=== PATIENT | male | born 1950 | race Caucasian/White ===

== ENCOUNTER 2017-04-02 14:21 | Inpatient (IN) | payer MEDICARE, BC ==
--- NOTE | 2017-04-02 14:45 | ED Physician Chart ---
ED Chief Complaint/HPI - Patient Information Date Seen:: 04/02/17 Time Seen:: 14:35 Chief Complaint:: Altered Mental Status History of Present Illness:: onset x one day of AMS, ALOC, and agitation; no report of H/As, neck pain, C/P, SOB, Abd. Pain, A/N/V/D/C, fever, chills, or urinary s/s Allergies:: Allergies Allergy/AdvReac Type Severity Reaction Status Date / Time No Known Allergies Allergy Verified 04/02/17 14:31 Vitals:: Vital Signs - 8 hr 04/02/17 14:35 Temp 98.1 F HR 84 RR 15 BP 144/84 O2 Sat % 97 Historian:: EMS, Family Member Review:: Nurse's Note Reviewed, EMS run form Reviewed ED Review of Systems - Review of Systems General/Constitutional: Fever, No chills, No weight loss, No weakness, No diaphoresis, No edema, No loss of appetite Skin: No skin lesions, No rash, No bruising Head: No headache, No light-headedness Eyes: No loss of vision, No pain, No diplopia ENT: No earache, No nasal drainage, No sore throat, No tinnitus Neck: No neck pain, No swelling, No thyromegaly, No stiffness, No mass noted Cardio Vascular: No chest pain, No palpitations, No PND, No orthopnea, No edema Pulmonary: No SOB, No cough, No sputum, No wheezing GI: No nausea, No vomiting, No diarrhea, No pain, No melena, No hematochezia, No constipation, No hematemesis G/U: No dysuria, No frequency, No hematuria Musculoskeletal: No bone or joint pain, No back pain, No muscle pain Endocrine: No polyuria, No polydipsia Psychiatric: No prior psych history, No depression, No anxiety, No suicidal ideation, No homicidal ideation, No auditory hallucination, No visual hallucination Hematopoietic: No bruising, No lymphadenopathy Allergic/Immuno: No urticaria, No angioedema Neurological: No syncope, Focal symptoms, Weakness, No paresthesia, No headache , No seizure, Dizziness, Confusion, No vertigo ED Past Medical History - Past Medical History Obtainable: Yes Past Medical History: Dyslipidemia, Dementia, Other (ALS) Family History: HTN Social History: Non Smoker, No Alcohol, No Drug Use, Surgical History: Appendectomy Psychiatricy History: Dementia Medication: Reviewed ED Physical Exam - Physical Examination General/Constitutional: Awake, Well-developed, well-nourished, Alert, No distress, GCS 15, Non-toxic appearing, Ambulatory Head: Atraumatic Eyes: Lids, conjuctiva normal, PERRL, EOMI Skin: Nl inspection, No rash, No skin lesions, No ecchymosis, Well hydrated, No lymphadenopathy ENMT: External ears, nose nl, Nasal exam nl, Lips, teeth, gums nl Neck: Nontender, Full ROM w/o pain, No JVD, No nuchal rigidity, No bruit, No mass, No stridor Respiratory: Nl effort/Exclusion, Clear to Auscultation, No Wheeze/Rhonchi/Rales Cardio Vascular: RRR, No murmur, gallop, rubs, NL S1 S2 GI: No tenderness/rebounding/guarding, No organomegaly, No hernia, Normal BS's, Nondistended, No mass/bruits, No McBurney tenderness : No CVA tenderness Extremities: No tenderness or effusion, Full ROM, normal strength in all extremities, No edema, Normal digits & nails Neuro/Psych: DTR's symmetric, Normal sensory exam, Normal motor strength, Judgement/insight normal, Mood normal, Normal gait, No focal deficits Other Neuro/Psych comments:: Disoriented and Confused Misc: Normal back, No paraspinal tenderness ED Septic Shock - . Is Septic Shock (SBP<90, OR Lactate>4 mmol\L) present?: No - <6hrs of presentation: Vital Signs: Vital Signs - 8 hr 04/02/17 14:35 Temp 98.1 F HR 84 RR 15 BP 144/84 O2 Sat % 97 ED Discharge Plan - Patient Disposition Instructions: Psychosis
[2017-04-02 15:12] LABS: % BASOPHILS 1.1 % (0.0-2.0); % EOSINOPHILS 2.2 % (0.0-5.0); % LYMPHOCYTES 33.2 % (20.0-50.0); % MONOCYTES 6.3 % (2.0-10.0); % NEUTROPHILS 57.2 % (40.0-80.0); HEMATOCRIT 40.3 % (41.0-60); HEMOGLOBIN 14.1 gm/dL (12-16); MEAN CORPUSCULAR HGB CONC 35.1 pg (28.0-36.0); MEAN PLATELET VOLUME 7.6 fl; NEUTROPHILE ABSOLUTE 6.1 Th/cmm (1.8-8.0); PLATELET COUNT 144 Th/cmm (150-400); RED BLOOD COUNT 4.28 Mil/cmm (4.30-5.70); RED CELL DISTRIBUTION WIDTH 13.1 % (11.5-20.0); WHITE BLOOD COUNT 10.7 Th/cmm (4.8-10.8)
[2017-04-02 15:49] LABS: ALB/GLOB RATIO 1.8 (1.0-1.8); ALKALINE PHOSPHATASE 63 U/L (34-104); ANION GAP 8.4 (7.0-16.0); BILIRUBIN,TOTAL 0.4 mg/dL (0.3-1.0); BUN - UREA NITROGEN 13 mg/dL (7-25); BUN/CREATININE RATIO 14.4; CALCIUM SERUM 9.3 mg/dL (8.6-10.3); CARBON DIOXIDE 28.3 mEq/L (21.0-31.0); CHLORIDE 102 mEq/L (98-107); CREATININE - SERUM 0.9 mg/dL (0.7-1.3); GLUCOSE 84 mg/dL (70-105); POTASSIUM SERUM 3.7 mEq/L (3.5-5.1); SGOT 49 U/L (13-39); SGPT/ALT 70 U/L (7-52); SODIUM SERUM 135 mEq/L (136-145)
[2017-04-02] MEDS ORDERED: Maalox 30 mL Cup PO PRN (17:22)
[2017-04-02] MEDS ORDERED: Magnesium Hydroxide (MOM) 30 mL UDC PO PRN (17:22)
[2017-04-02] MEDS ORDERED: Haloperidol Lactate 5 mg/mL 1mL Vial ONE (17:45)
[2017-04-02] MEDS ORDERED: Haloperidol Lactate 5 mg/mL 1mL Vial IM ONE (17:50)
[2017-04-03] MEDS ORDERED: Haloperidol Lactate 5 mg/mL 1mL Vial ONE (12:54)
[2017-04-03] MEDS ORDERED: Haloperidol Lactate 5 mg/mL 1mL Vial IM ONE (13:28)
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
[2017-04-04] MEDS ORDERED: IRON PO SCH (09:00)
[2017-04-04] MEDS ORDERED: VIT E PO SCH (09:00)
[2017-04-04] MEDS ORDERED: [UNRECOGNIZED DRUG - OTHER] PO SCH (09:00)
[2017-04-04] MEDS ORDERED: VIT B COMP PO SCH (09:00)
[2017-04-04] MEDS: Multivitamin Tab PO SCH (09:41)
[2017-04-04] MEDS: Atorvastatin Calcium 10 MG TAB PO SCH (09:41)
--- NOTE | 2017-04-04 12:46 | Internal Medicine Prog Note ---
Internal Medicine Subjective - Subjective Service Date: 04/04/17 ([id number] hnp dictated) Patient seen and examined:: with staff Internal Medicine Objective - Results Result Diagrams: 04/02/17 15:05 04/02/17 15:05 Recent Labs: Laboratory Last Values WBC 10.7 Th/cmm (4.8-10.8) 04/02/17 15:05 RBC 4.28 Mil/cmm (4.30-5.70) L 04/02/17 15:05 Hgb 14.1 gm/dL (12-16) 04/02/17 15:05 Hct 40.3 % (41.0-60) L 04/02/17 15:05 MCV 94.0 fl (80-99) 04/02/17 15:05 MCH 33.0 pg (26.0-30.0) H 04/02/17 15:05 MCHC Differential 35.1 pg (28.0-36.0) 04/02/17 15:05 RDW 13.1 % (11.5-20.0) 04/02/17 15:05 Plt Count 144 Th/cmm (150-400) L 04/02/17 15:05 MPV 7.6 fl 04/02/17 15:05 Neutrophils % 57.2 % (40.0-80.0) 04/02/17 15:05 Lymphocytes % 33.2 % (20.0-50.0) 04/02/17 15:05 Monocytes % 6.3 % (2.0-10.0) 04/02/17 15:05 Eosinophils % 2.2 % (0.0-5.0) 04/02/17 15:05 Basophils % 1.1 % (0.0-2.0) 04/02/17 15:05 Sodium 135 mEq/L (136-145) L 04/02/17 15:05 Potassium 3.7 mEq/L (3.5-5.1) 04/02/17 15:05 Chloride 102 mEq/L (98-107) 04/02/17 15:05 Carbon Dioxide 28.3 mEq/L (21.0-31.0) 04/02/17 15:05 Anion Gap 8.4 (7.0-16.0) 04/02/17 15:05 BUN 13 mg/dL (7-25) 04/02/17 15:05 Creatinine 0.9 mg/dL (0.7-1.3) 04/02/17 15:05 Est GFR ( Amer) > 60.0 ml/min (>90) 04/02/17 15:05 Est GFR (Non-Af Amer) > 60.0 ml/min 04/02/17 15:05 BUN/Creatinine Ratio 14.4 04/02/17 15:05 Glucose 84 mg/dL (70-105) 04/02/17 15:05 Calcium 9.3 mg/dL (8.6-10.3) 04/02/17 15:05 Total Bilirubin 0.4 mg/dL (0.3-1.0) 04/02/17 15:05 AST 49 U/L (13-39) H 04/02/17 15:05 ALT 70 U/L (7-52) H 04/02/17 15:05 Alkaline Phosphatase 63 U/L (34-104) 04/02/17 15:05 Total Protein 7.0 gm/dL (6.0-8.3) 04/02/17 15:05 Albumin 4.5 gm/dL (4.2-5.5) 04/02/17 15:05 Globulin 2.5 gm/dL 04/02/17 15:05 Albumin/Globulin Ratio 1.8 (1.0-1.8) 04/02/17 15:05 - Physical Exam Vitals and I&O: Vital Signs Temp 97.5 F 04/04/17 06:45 Pulse 90 04/04/17 06:45 Resp 20 04/04/17 06:45 BP 153/77 04/04/17 06:45 Pulse Ox 95 04/04/17 06:45 Intake & Output 04/03/17 04/04/17 04/04/17 18:59 06:59 18:59 Intake Total 960 120 Balance 960 120 Intake: Oral 960 120 Other: # Voids 3 3 # Bowel Movements 1 1 Active Medications: Current Medications Acetaminophen (Tylenol) 650 mg PO Q4H PRN PRN Reason: Mild Pain/Headache/T above 101 Stop: 06/01/17 17:21 Last Admin: 04/03/17 09:21 Dose: 650 mg Al Hydrox/Mg Hydrox/Simethicone (Maalox) 30 ml PO Q6H PRN PRN Reason: Dyspepsia Stop: 06/01/17 17:21 Atorvastatin Calcium (Lipitor) 10 mg PO DAILY MIKE PRN Reason: Protocol Stop: 06/03/17 08:59 Last Admin: 04/04/17 09:41 Dose: 10 mg Chlordiazepoxide (Librium) 50 mg PO Q2HR PRN; Protocol PRN Reason: Alcohol Withdrawal Stop: 06/03/17 12:10 Last Admin: 04/04/17 12:30 Dose: 50 mg Lorazepam (Ativan) 0.5 mg PO Q4HR PRN; Protocol PRN Reason: Agitation Stop: 06/01/17 17:21 Last Admin: 04/04/17 10:38 Dose: 0.5 mg Magnesium Hydroxide (Milk Of Magnesia) 30 ml PO DAILY PRN PRN Reason: Constipation Stop: 06/01/17 17:21 Multivitamins/Vitamin C (Theragran) 1 tab PO DAILY MIKE Stop: 06/03/17 08:59 Last Admin: 04/04/17 09:41 Dose: 1 tab Thiamine HCl (Vitamin B1) 100 mg PO DAILY MIKE Stop: 06/03/17 08:59 Last Admin: 04/04/17 09:41 Dose: 100 mg Zolpidem Tartrate (Ambien) 5 mg PO HS PRN PRN Reason: Insomnia Stop: 06/01/17 17:21 Internal Medicine Assmt/Plan - Assessment Assessment: AGITATION PSYCHOSIS ALTERED MENTAL STATUS DEMENTIA DYSLIPIDEMIA
--- NOTE | 2017-04-04 13:50 | History & Physical ---
ADMIT DATE: 04/04/2017 CHIEF COMPLAINT: Altered mental status. HISTORY OF PRESENT ILLNESS: This is a 66-year-old male, who is admitted to the Geropsych Unit for altered mental status and agitation. Patient is now admitted to the Geropsych Unit. PAST MEDICAL HISTORY: Dyslipidemia and dementia. SOCIAL HISTORY: No history of smoking, alcohol, any illicit drug usage. SURGICAL HISTORY: Appendectomy. MEDICATIONS: Please see medication sheet. REVIEW OF SYSTEMS: GENERAL: Denies any fevers and chills. CARDIOVASCULAR: Denies chest pain. RESPIRATORY: Denies shortness of breath. GASTROINTESTINAL: Denies nausea, vomiting or abdominal pain. GENITOURINARY: Dysuria. All other systems are reviewed by me and are negative. PHYSICAL EXAMINATION: GENERAL: Patient's well-developed, well-nourished, no acute distress. VITAL SIGNS: Temperature 97.5, heart rate 90, blood pressure 153/77, respirations 20, O2 95%. HEENT: Head is atraumatic. NECK: Supple ____ mass. LUNGS: Clear bilaterally. ABDOMEN: Soft, nontender. LABORATORY DATA: WBC 10.7, H and H 14.1 and 40.3, platelet of 144. Sodium 135, potassium 3.7, chloride 102, BUN 13, creatinine 0.9. ASSESSMENT: Altered mental status, psychosis, dyslipidemia and dementia. PLAN: Patient to be admitted to the Geropsych Unit. Patient to continue same medications the patient was taking at home. We will continue to follow this patient. JOB# [id number]
--- NOTE | 2017-04-04 21:36 | Progress Notes ---
DATE: 04/04/2017 SUBJECTIVE: Chart reviewed and the patient interviewed. Also discussed the patient's condition with the staff and reviewed records and labs. The patient continues to be severely agitated and he is still restless. The patient also is confused and still unable to answer questions coherently. Also, is still easily agitated. Otherwise, is slightly easier to redirect him. The patient also is trying to get out of bed, in confused state and seems to be slightly disoriented. The patient also still has minimum interaction with others. Yesterday, and during the day, the patient was extremely agitated and irritable and the patient had to be given emergency Haldol, Ativan and Benadryl injection to calm him down. ASSESSMENT: The patient is still confused and still needs close monitoring. TREATMENT PLAN: We will continue monitoring his behavior and his condition closely. Also, we will give thiamine to help with any possible withdrawal of alcohol as well as continue benzodiazepines on a p.r.n. basis and we will continue to follow up. JOB# [id number]
[2017-04-05] MEDS: Multivitamin Tab PO SCH (10:00)
[2017-04-05] MEDS: Atorvastatin Calcium 10 MG TAB PO SCH (10:00)
--- NOTE | 2017-04-05 14:59 | Internal Medicine Prog Note ---
Internal Medicine Subjective - Subjective Patient seen and examined:: with staff, chart reviewed Patient is:: awake, non-verbal, non-interactive, damien chair Per staff patient has:: no adverse event, no episodes of fall, poor appetite, noncompliant, tolerating meds Internal Medicine Objective - Results Result Diagrams: 04/02/17 15:05 04/02/17 15:05 Recent Labs: Laboratory Last Values WBC 10.7 Th/cmm (4.8-10.8) 04/02/17 15:05 RBC 4.28 Mil/cmm (4.30-5.70) L 04/02/17 15:05 Hgb 14.1 gm/dL (12-16) 04/02/17 15:05 Hct 40.3 % (41.0-60) L 04/02/17 15:05 MCV 94.0 fl (80-99) 04/02/17 15:05 MCH 33.0 pg (26.0-30.0) H 04/02/17 15:05 MCHC Differential 35.1 pg (28.0-36.0) 04/02/17 15:05 RDW 13.1 % (11.5-20.0) 04/02/17 15:05 Plt Count 144 Th/cmm (150-400) L 04/02/17 15:05 MPV 7.6 fl 04/02/17 15:05 Neutrophils % 57.2 % (40.0-80.0) 04/02/17 15:05 Lymphocytes % 33.2 % (20.0-50.0) 04/02/17 15:05 Monocytes % 6.3 % (2.0-10.0) 04/02/17 15:05 Eosinophils % 2.2 % (0.0-5.0) 04/02/17 15:05 Basophils % 1.1 % (0.0-2.0) 04/02/17 15:05 Sodium 135 mEq/L (136-145) L 04/02/17 15:05 Potassium 3.7 mEq/L (3.5-5.1) 04/02/17 15:05 Chloride 102 mEq/L (98-107) 04/02/17 15:05 Carbon Dioxide 28.3 mEq/L (21.0-31.0) 04/02/17 15:05 Anion Gap 8.4 (7.0-16.0) 04/02/17 15:05 BUN 13 mg/dL (7-25) 04/02/17 15:05 Creatinine 0.9 mg/dL (0.7-1.3) 04/02/17 15:05 Est GFR ( Amer) > 60.0 ml/min (>90) 04/02/17 15:05 Est GFR (Non-Af Amer) > 60.0 ml/min 04/02/17 15:05 BUN/Creatinine Ratio 14.4 04/02/17 15:05 Glucose 84 mg/dL (70-105) 04/02/17 15:05 Calcium 9.3 mg/dL (8.6-10.3) 04/02/17 15:05 Total Bilirubin 0.4 mg/dL (0.3-1.0) 04/02/17 15:05 AST 49 U/L (13-39) H 04/02/17 15:05 ALT 70 U/L (7-52) H 04/02/17 15:05 Alkaline Phosphatase 63 U/L (34-104) 04/02/17 15:05 Total Protein 7.0 gm/dL (6.0-8.3) 04/02/17 15:05 Albumin 4.5 gm/dL (4.2-5.5) 04/02/17 15:05 Globulin 2.5 gm/dL 04/02/17 15:05 Albumin/Globulin Ratio 1.8 (1.0-1.8) 04/02/17 15:05 - Physical Exam Vitals and I&O: Vital Signs Temp 98.4 F 04/05/17 06:48 Pulse 79 04/05/17 06:48 Resp 20 04/05/17 06:48 BP 149/82 04/05/17 06:48 Pulse Ox 98 04/05/17 06:48 Intake & Output 04/04/17 04/05/17 04/05/17 18:59 06:59 18:59 Intake Total 960 240 Balance 960 240 Intake: Oral 960 240 Other: # Voids 3 1 # Bowel Movements 1 Active Medications: Current Medications Acetaminophen (Tylenol) 650 mg PO Q4H PRN PRN Reason: Mild Pain/Headache/T above 101 Stop: 06/01/17 17:21 Last Admin: 04/03/17 09:21 Dose: 650 mg Al Hydrox/Mg Hydrox/Simethicone (Maalox) 30 ml PO Q6H PRN PRN Reason: Dyspepsia Stop: 06/01/17 17:21 Atorvastatin Calcium (Lipitor) 10 mg PO DAILY MIKE PRN Reason: Protocol Stop: 06/03/17 08:59 Last Admin: 04/05/17 10:00 Dose: Not Given Chlordiazepoxide (Librium) 50 mg PO Q2HR PRN; Protocol PRN Reason: Alcohol Withdrawal Stop: 06/03/17 12:10 Last Admin: 04/05/17 13:46 Dose: 50 mg Lorazepam (Ativan) 0.5 mg PO Q4HR PRN; Protocol PRN Reason: Agitation Stop: 06/01/17 17:21 Last Admin: 04/04/17 16:21 Dose: 0.5 mg Magnesium Hydroxide (Milk Of Magnesia) 30 ml PO DAILY PRN PRN Reason: Constipation Stop: 06/01/17 17:21 Multivitamins/Vitamin C (Theragran) 1 tab PO DAILY MIKE Stop: 06/03/17 08:59 Last Admin: 04/05/17 10:00 Dose: Not Given Quetiapine Fumarate (Seroquel) 25 mg PO BID MIKE PRN Reason: Protocol Stop: 06/04/17 16:59 Thiamine HCl (Vitamin B1) 100 mg PO DAILY [facility] Stop: 06/03/17 08:59 Last Admin: 04/05/17 10:00 Dose: Not Given Zolpidem Tartrate (Ambien) 5 mg PO HS PRN PRN Reason: Insomnia Stop: 06/01/17 17:21 General: lethargic, demented HEENT: NC/AT, PERRLA, thinning hair, poor dentition Neck: Supple, No thyromegaly Lungs: CTAB Cardiovascular: RRR, Normal S1, Normal S2, without murmur Abdomen: soft, non-tender, globular, positive bowel sound Extremities: excoriation Internal Medicine Assmt/Plan - Assessment Assessment: AGITATION PSYCHOSIS ALTERED MENTAL STATUS DEMENTIA DYSLIPIDEMIA - Plan Plan: cont w nutritional support will rview labs symptomatic care and tx dw rn
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
--- NOTE | 2017-04-06 10:56 | Internal Medicine Prog Note ---
Internal Medicine Subjective - Subjective Patient seen and examined:: with staff, chart reviewed Patient is:: awake, non-verbal, non-interactive, damien chair Per staff patient has:: no adverse event, no episodes of fall, poor appetite, noncompliant, tolerating meds Internal Medicine Objective - Results Result Diagrams: 04/02/17 15:05 04/02/17 15:05 Recent Labs: Laboratory Last Values WBC 10.7 Th/cmm (4.8-10.8) 04/02/17 15:05 RBC 4.28 Mil/cmm (4.30-5.70) L 04/02/17 15:05 Hgb 14.1 gm/dL (12-16) 04/02/17 15:05 Hct 40.3 % (41.0-60) L 04/02/17 15:05 MCV 94.0 fl (80-99) 04/02/17 15:05 MCH 33.0 pg (26.0-30.0) H 04/02/17 15:05 MCHC Differential 35.1 pg (28.0-36.0) 04/02/17 15:05 RDW 13.1 % (11.5-20.0) 04/02/17 15:05 Plt Count 144 Th/cmm (150-400) L 04/02/17 15:05 MPV 7.6 fl 04/02/17 15:05 Neutrophils % 57.2 % (40.0-80.0) 04/02/17 15:05 Lymphocytes % 33.2 % (20.0-50.0) 04/02/17 15:05 Monocytes % 6.3 % (2.0-10.0) 04/02/17 15:05 Eosinophils % 2.2 % (0.0-5.0) 04/02/17 15:05 Basophils % 1.1 % (0.0-2.0) 04/02/17 15:05 Sodium 135 mEq/L (136-145) L 04/02/17 15:05 Potassium 3.7 mEq/L (3.5-5.1) 04/02/17 15:05 Chloride 102 mEq/L (98-107) 04/02/17 15:05 Carbon Dioxide 28.3 mEq/L (21.0-31.0) 04/02/17 15:05 Anion Gap 8.4 (7.0-16.0) 04/02/17 15:05 BUN 13 mg/dL (7-25) 04/02/17 15:05 Creatinine 0.9 mg/dL (0.7-1.3) 04/02/17 15:05 Est GFR ( Amer) > 60.0 ml/min (>90) 04/02/17 15:05 Est GFR (Non-Af Amer) > 60.0 ml/min 04/02/17 15:05 BUN/Creatinine Ratio 14.4 04/02/17 15:05 Glucose 84 mg/dL (70-105) 04/02/17 15:05 Calcium 9.3 mg/dL (8.6-10.3) 04/02/17 15:05 Total Bilirubin 0.4 mg/dL (0.3-1.0) 04/02/17 15:05 AST 49 U/L (13-39) H 04/02/17 15:05 ALT 70 U/L (7-52) H 04/02/17 15:05 Alkaline Phosphatase 63 U/L (34-104) 04/02/17 15:05 Total Protein 7.0 gm/dL (6.0-8.3) 04/02/17 15:05 Albumin 4.5 gm/dL (4.2-5.5) 04/02/17 15:05 Globulin 2.5 gm/dL 04/02/17 15:05 Albumin/Globulin Ratio 1.8 (1.0-1.8) 04/02/17 15:05 - Physical Exam Vitals and I&O: Vital Signs Temp 99.0 F 04/06/17 10:07 Pulse 93 04/06/17 10:07 Resp 20 04/06/17 10:07 BP 158/78 04/06/17 10:07 Pulse Ox 93 04/06/17 10:07 Intake & Output 04/05/17 04/06/17 04/06/17 18:59 06:59 18:59 Intake Total 1000 120 Balance 1000 120 Intake: Oral 1000 120 Other: # Voids 3 3 # Bowel Movements 1 Active Medications: Current Medications Acetaminophen (Tylenol) 650 mg PO Q4H PRN PRN Reason: Mild Pain/Headache/T above 101 Stop: 06/01/17 17:21 Last Admin: 04/03/17 09:21 Dose: 650 mg Al Hydrox/Mg Hydrox/Simethicone (Maalox) 30 ml PO Q6H PRN PRN Reason: Dyspepsia Stop: 06/01/17 17:21 Atorvastatin Calcium (Lipitor) 10 mg PO DAILY MIKE PRN Reason: Protocol Stop: 06/03/17 08:59 Last Admin: 04/05/17 10:00 Dose: Not Given Chlordiazepoxide (Librium) 50 mg PO Q2HR PRN; Protocol PRN Reason: Alcohol Withdrawal Stop: 06/03/17 12:10 Last Admin: 04/05/17 13:46 Dose: 50 mg Lorazepam (Ativan) 0.5 mg PO Q4HR PRN; Protocol PRN Reason: Agitation Stop: 06/01/17 17:21 Last Admin: 04/04/17 16:21 Dose: 0.5 mg Magnesium Hydroxide (Milk Of Magnesia) 30 ml PO DAILY PRN PRN Reason: Constipation Stop: 06/01/17 17:21 Multivitamins/Vitamin C (Theragran) 1 tab PO DAILY MIKE Stop: 06/03/17 08:59 Last Admin: 04/05/17 10:00 Dose: Not Given Quetiapine Fumarate (Seroquel) 25 mg PO BID MIKE PRN Reason: Protocol Stop: 06/04/17 16:59 Last Admin: 04/05/17 18:00 Dose: 25 mg Thiamine HCl (Vitamin B1) 100 mg PO DAILY MIKE Stop: 06/03/17 08:59 Last Admin: 04/05/17 10:00 Dose: Not Given Zolpidem Tartrate (Ambien) 5 mg PO HS PRN PRN Reason: Insomnia Stop: 06/01/17 17:21 General: lethargic, demented HEENT: NC/AT, PERRLA, thinning hair, poor dentition Neck: Supple, No thyromegaly Lungs: CTAB Cardiovascular: RRR, Normal S1, Normal S2, without murmur Abdomen: soft, non-tender, globular, positive bowel sound Extremities: excoriation Internal Medicine Assmt/Plan - Assessment Assessment: AGITATION PSYCHOSIS ALTERED MENTAL STATUS DEMENTIA DYSLIPIDEMIA - Plan Plan: cont w nutritional support will rview labs symptomatic care and tx luz rn
[2017-04-06] MEDS: Atorvastatin Calcium 10 MG TAB PO SCH (12:30)
[2017-04-06] MEDS: Multivitamin Tab PO SCH (12:30)
--- NOTE | 2017-04-07 02:02 | Progress Notes ---
DATE: 04/06/2017 Case was discussed with staff of the patient, reviewed records. The patient, according to staff, has been sometimes refusing to take his medication. Continues to have poor insight. Continues to be unpredictable, impulsive, needing redirection. He is on detox from the alcohol. He was unwilling to participate in meaningful conversation or give any information regarding events that led to his admission. We will continue to work with the patient in group therapy and milieu therapy, adjust the medication as needed. JOB# [id number]
[2017-04-07] MEDS: Multivitamin Tab PO SCH (09:12)
[2017-04-07] MEDS: Atorvastatin Calcium 10 MG TAB PO SCH (09:13)
--- NOTE | 2017-04-07 12:24 | Internal Medicine Prog Note ---
Internal Medicine Subjective - Subjective Service Date: 04/07/17 Patient is:: awake, non-verbal, non-interactive, damien chair Per staff patient has:: no adverse event, no episodes of fall, poor appetite, noncompliant, tolerating meds Internal Medicine Objective - Results Result Diagrams: 04/02/17 15:05 04/02/17 15:05 Recent Labs: Laboratory Last Values WBC 10.7 Th/cmm (4.8-10.8) 04/02/17 15:05 RBC 4.28 Mil/cmm (4.30-5.70) L 04/02/17 15:05 Hgb 14.1 gm/dL (12-16) 04/02/17 15:05 Hct 40.3 % (41.0-60) L 04/02/17 15:05 MCV 94.0 fl (80-99) 04/02/17 15:05 MCH 33.0 pg (26.0-30.0) H 04/02/17 15:05 MCHC Differential 35.1 pg (28.0-36.0) 04/02/17 15:05 RDW 13.1 % (11.5-20.0) 04/02/17 15:05 Plt Count 144 Th/cmm (150-400) L 04/02/17 15:05 MPV 7.6 fl 04/02/17 15:05 Neutrophils % 57.2 % (40.0-80.0) 04/02/17 15:05 Lymphocytes % 33.2 % (20.0-50.0) 04/02/17 15:05 Monocytes % 6.3 % (2.0-10.0) 04/02/17 15:05 Eosinophils % 2.2 % (0.0-5.0) 04/02/17 15:05 Basophils % 1.1 % (0.0-2.0) 04/02/17 15:05 Sodium 135 mEq/L (136-145) L 04/02/17 15:05 Potassium 3.7 mEq/L (3.5-5.1) 04/02/17 15:05 Chloride 102 mEq/L (98-107) 04/02/17 15:05 Carbon Dioxide 28.3 mEq/L (21.0-31.0) 04/02/17 15:05 Anion Gap 8.4 (7.0-16.0) 04/02/17 15:05 BUN 13 mg/dL (7-25) 04/02/17 15:05 Creatinine 0.9 mg/dL (0.7-1.3) 04/02/17 15:05 Est GFR ( Amer) > 60.0 ml/min (>90) 04/02/17 15:05 Est GFR (Non-Af Amer) > 60.0 ml/min 04/02/17 15:05 BUN/Creatinine Ratio 14.4 04/02/17 15:05 Glucose 84 mg/dL (70-105) 04/02/17 15:05 Calcium 9.3 mg/dL (8.6-10.3) 04/02/17 15:05 Total Bilirubin 0.4 mg/dL (0.3-1.0) 04/02/17 15:05 AST 49 U/L (13-39) H 04/02/17 15:05 ALT 70 U/L (7-52) H 04/02/17 15:05 Alkaline Phosphatase 63 U/L (34-104) 04/02/17 15:05 Total Protein 7.0 gm/dL (6.0-8.3) 04/02/17 15:05 Albumin 4.5 gm/dL (4.2-5.5) 04/02/17 15:05 Globulin 2.5 gm/dL 04/02/17 15:05 Albumin/Globulin Ratio 1.8 (1.0-1.8) 04/02/17 15:05 - Physical Exam Vitals and I&O: Vital Signs Temp 98.3 F 04/07/17 05:47 Pulse 83 04/07/17 05:47 Resp 20 04/07/17 08:00 BP 165/82 04/07/17 05:47 Pulse Ox 92 04/07/17 05:47 Intake & Output 04/06/17 04/07/17 04/07/17 18:59 06:59 18:59 Intake Total 1380 Balance 1380 Intake: Oral 1380 Other: # Voids 2 # Bowel Movements 0 Active Medications: Current Medications Acetaminophen (Tylenol) 650 mg PO Q4H PRN PRN Reason: Mild Pain/Headache/T above 101 Stop: 06/01/17 17:21 Last Admin: 04/03/17 09:21 Dose: 650 mg Al Hydrox/Mg Hydrox/Simethicone (Maalox) 30 ml PO Q6H PRN PRN Reason: Dyspepsia Stop: 06/01/17 17:21 Atorvastatin Calcium (Lipitor) 10 mg PO DAILY MIKE PRN Reason: Protocol Stop: 06/03/17 08:59 Last Admin: 04/07/17 09:13 Dose: 10 mg Lorazepam (Ativan) 0.5 mg PO Q4HR PRN; Protocol PRN Reason: Agitation Stop: 06/01/17 17:21 Last Admin: 04/04/17 16:21 Dose: 0.5 mg Lorazepam (Ativan) 1 mg PO TID MIKE PRN Reason: Protocol Stop: 06/06/17 13:59 Magnesium Chloride (Slow-Mag) 1 ect PO DAILY MIKE Stop: 06/07/17 08:59 Magnesium Hydroxide (Milk Of Magnesia) 30 ml PO DAILY PRN PRN Reason: Constipation Stop: 06/01/17 17:21 Multivitamins/Vitamin C (Theragran) 1 tab PO DAILY MIKE Stop: 06/03/17 08:59 Last Admin: 04/07/17 09:12 Dose: 1 tab Quetiapine Fumarate (Seroquel) 25 mg PO BID MIKE PRN Reason: Protocol Stop: 06/04/17 16:59 Last Admin: 04/07/17 09:14 Dose: 25 mg Thiamine HCl (Vitamin B1) 100 mg PO DAILY MIKE Stop: 06/03/17 08:59 Last Admin: 04/07/17 09:15 Dose: 100 mg Zolpidem Tartrate (Ambien) 5 mg PO HS PRN PRN Reason: Insomnia Stop: 06/01/17 17:21 General: lethargic, demented HEENT: NC/AT, PERRLA, thinning hair, poor dentition Neck: Supple, No thyromegaly Lungs: CTAB Cardiovascular: RRR, Normal S1, Normal S2, without murmur Abdomen: soft, non-tender, globular, positive bowel sound Extremities: excoriation Internal Medicine Assmt/Plan - Assessment Assessment: AGITATION PSYCHOSIS ALTERED MENTAL STATUS DEMENTIA DYSLIPIDEMIA ALS - Plan Plan: continue with nutritional support symptomatic care and tx continue present management
--- NOTE | 2017-04-07 22:28 | Progress Notes ---
DATE: 04/07/2017 SUBJECTIVE: Chart reviewed and the patient interviewed. Also discussed the patient's condition with the staff and reviewed records and labs. The patient remains anxious and he is still shaky and confused. When I tried to talk to the patient, he was very confused and unable to carry on a coherent conversation, and he did not know where he is at or what is his date or the day or time. He was calm, but he seems to be going through withdrawal. ASSESSMENT: The patient is still confused and going through detox. TREATMENT PLAN: We will add magnesium sulfate and thiamine and also we will increase Ativan, and we will continue monitoring his behavior closely. JOB# [id number]
[2017-04-08] MEDS: Atorvastatin Calcium 10 MG TAB PO SCH (09:46)
[2017-04-08] MEDS: Multivitamin Tab PO SCH (09:46)
[2017-04-08] MEDS: Magnesium Chloride EC 64mg Tab PO SCH (09:46)
--- NOTE | 2017-04-08 14:14 | Internal Medicine Prog Note ---
Internal Medicine Subjective - Subjective Service Date: 04/08/17 Patient is:: awake, non-verbal, non-interactive, damien chair Per staff patient has:: no adverse event, no episodes of fall, poor appetite, noncompliant, tolerating meds Internal Medicine Objective - Results Result Diagrams: 04/02/17 15:05 04/02/17 15:05 Recent Labs: Laboratory Last Values WBC 10.7 Th/cmm (4.8-10.8) 04/02/17 15:05 RBC 4.28 Mil/cmm (4.30-5.70) L 04/02/17 15:05 Hgb 14.1 gm/dL (12-16) 04/02/17 15:05 Hct 40.3 % (41.0-60) L 04/02/17 15:05 MCV 94.0 fl (80-99) 04/02/17 15:05 MCH 33.0 pg (26.0-30.0) H 04/02/17 15:05 MCHC Differential 35.1 pg (28.0-36.0) 04/02/17 15:05 RDW 13.1 % (11.5-20.0) 04/02/17 15:05 Plt Count 144 Th/cmm (150-400) L 04/02/17 15:05 MPV 7.6 fl 04/02/17 15:05 Neutrophils % 57.2 % (40.0-80.0) 04/02/17 15:05 Lymphocytes % 33.2 % (20.0-50.0) 04/02/17 15:05 Monocytes % 6.3 % (2.0-10.0) 04/02/17 15:05 Eosinophils % 2.2 % (0.0-5.0) 04/02/17 15:05 Basophils % 1.1 % (0.0-2.0) 04/02/17 15:05 Sodium 135 mEq/L (136-145) L 04/02/17 15:05 Potassium 3.7 mEq/L (3.5-5.1) 04/02/17 15:05 Chloride 102 mEq/L (98-107) 04/02/17 15:05 Carbon Dioxide 28.3 mEq/L (21.0-31.0) 04/02/17 15:05 Anion Gap 8.4 (7.0-16.0) 04/02/17 15:05 BUN 13 mg/dL (7-25) 04/02/17 15:05 Creatinine 0.9 mg/dL (0.7-1.3) 04/02/17 15:05 Est GFR ( Amer) > 60.0 ml/min (>90) 04/02/17 15:05 Est GFR (Non-Af Amer) > 60.0 ml/min 04/02/17 15:05 BUN/Creatinine Ratio 14.4 04/02/17 15:05 Glucose 84 mg/dL (70-105) 04/02/17 15:05 Calcium 9.3 mg/dL (8.6-10.3) 04/02/17 15:05 Total Bilirubin 0.4 mg/dL (0.3-1.0) 04/02/17 15:05 AST 49 U/L (13-39) H 04/02/17 15:05 ALT 70 U/L (7-52) H 04/02/17 15:05 Alkaline Phosphatase 63 U/L (34-104) 04/02/17 15:05 Total Protein 7.0 gm/dL (6.0-8.3) 04/02/17 15:05 Albumin 4.5 gm/dL (4.2-5.5) 04/02/17 15:05 Globulin 2.5 gm/dL 04/02/17 15:05 Albumin/Globulin Ratio 1.8 (1.0-1.8) 04/02/17 15:05 - Physical Exam Vitals and I&O: Vital Signs Temp 98.0 F 04/08/17 06:22 Pulse 93 04/08/17 06:22 Resp 20 04/08/17 06:22 BP 149/69 04/08/17 06:22 Pulse Ox 92 04/08/17 06:22 Intake & Output 04/07/17 04/08/17 04/08/17 18:59 06:59 18:59 Intake Total 900 180 Balance 900 180 Intake: Oral 900 180 Other: # Voids 4 2 # Bowel Movements 1 0 Active Medications: Current Medications Acetaminophen (Tylenol) 650 mg PO Q4H PRN PRN Reason: Mild Pain/Headache/T above 101 Stop: 06/01/17 17:21 Last Admin: 04/03/17 09:21 Dose: 650 mg Al Hydrox/Mg Hydrox/Simethicone (Maalox) 30 ml PO Q6H PRN PRN Reason: Dyspepsia Stop: 06/01/17 17:21 Atorvastatin Calcium (Lipitor) 10 mg PO DAILY MIKE PRN Reason: Protocol Stop: 06/03/17 08:59 Last Admin: 04/08/17 09:46 Dose: 10 mg Lorazepam (Ativan) 0.5 mg PO Q4HR PRN; Protocol PRN Reason: Agitation Stop: 06/01/17 17:21 Last Admin: 04/04/17 16:21 Dose: 0.5 mg Lorazepam (Ativan) 1 mg PO TID MIKE PRN Reason: Protocol Stop: 06/06/17 13:59 Last Admin: 04/08/17 09:46 Dose: 1 mg Magnesium Chloride (Slow-Mag) 1 ect PO DAILY MIKE Stop: 06/07/17 08:59 Last Admin: 04/08/17 09:46 Dose: 1 ect Magnesium Hydroxide (Milk Of Magnesia) 30 ml PO DAILY PRN PRN Reason: Constipation Stop: 06/01/17 17:21 Multivitamins/Vitamin C (Theragran) 1 tab PO DAILY MIKE Stop: 06/03/17 08:59 Last Admin: 04/08/17 09:46 Dose: 1 tab Quetiapine Fumarate (Seroquel) 25 mg PO BID MIKE PRN Reason: Protocol Stop: 06/04/17 16:59 Last Admin: 04/08/17 09:47 Dose: 25 mg Thiamine HCl (Vitamin B1) 100 mg PO DAILY MIKE Stop: 06/03/17 08:59 Last Admin: 04/08/17 09:47 Dose: 100 mg Zolpidem Tartrate (Ambien) 5 mg PO HS PRN PRN Reason: Insomnia Stop: 06/01/17 17:21 General: lethargic, demented HEENT: NC/AT, PERRLA, thinning hair, poor dentition Neck: Supple, No thyromegaly Lungs: CTAB Cardiovascular: RRR, Normal S1, Normal S2, without murmur Abdomen: soft, non-tender, globular, positive bowel sound Extremities: excoriation Internal Medicine Assmt/Plan - Assessment Assessment: AGITATION PSYCHOSIS ALTERED MENTAL STATUS DEMENTIA DYSLIPIDEMIA ALS - Plan Plan: continue with nutritional support symptomatic care and tx continue present management
--- NOTE | 2017-04-08 20:23 | Progress Notes ---
DATE: 04/08/2017 SUBJECTIVE: Chart reviewed and the patient interviewed. Also, discussed the patient's condition with the staff and reviewed records and labs. The patient is angry and is in irritable mood. The patient also is still suspicious and is still paranoid. He also is still having difficulty with his mood. The patient also needs lots of redirections because of confusion. Also, personal hygiene is still poor. ASSESSMENT: The patient is still psychotic and agitated. TREATMENT PLAN: Continue to monitor his behavior and condition and we will continue to follow up. JOB# [id number]
--- NOTE | 2017-04-09 06:58 | Progress Notes ---
DATE: 04/09/2017 SUBJECTIVE: Chart reviewed and the patient interviewed. Also discussed the patient's condition with the staff and reviewed records and labs. The patient is still severely anxious and he is still in a depressed mood. The patient also is interacting minimally with peers and with others. The patient also still seems to have episodes of being shaky. Also seems to be at times forgetful. Otherwise, the patient is compliant with taking his medications with no side effects of medications. He denies any craving to drink. ASSESSMENT: The patient is still psychotic and also is still high risk relapse. TREATMENT PLAN: Continue to monitor his behavior and his condition closely. Also, we will increase Seroquel to 37.5 mg twice a day. Also, working on his possible depression and we will continue to follow up closely. JOB# [id number]
[2017-04-09] MEDS: Atorvastatin Calcium 10 MG TAB PO SCH (09:11)
[2017-04-09] MEDS: Multivitamin Tab PO SCH (09:11)
--- NOTE | 2017-04-09 15:52 | Internal Medicine Prog Note ---
Internal Medicine Subjective - Subjective Service Date: 04/09/17 Patient is:: awake, non-verbal, non-interactive, damien chair Per staff patient has:: no adverse event, no episodes of fall, poor appetite, noncompliant, tolerating meds Internal Medicine Objective - Results Result Diagrams: 04/02/17 15:05 04/02/17 15:05 Recent Labs: Laboratory Last Values WBC 10.7 Th/cmm (4.8-10.8) 04/02/17 15:05 RBC 4.28 Mil/cmm (4.30-5.70) L 04/02/17 15:05 Hgb 14.1 gm/dL (12-16) 04/02/17 15:05 Hct 40.3 % (41.0-60) L 04/02/17 15:05 MCV 94.0 fl (80-99) 04/02/17 15:05 MCH 33.0 pg (26.0-30.0) H 04/02/17 15:05 MCHC Differential 35.1 pg (28.0-36.0) 04/02/17 15:05 RDW 13.1 % (11.5-20.0) 04/02/17 15:05 Plt Count 144 Th/cmm (150-400) L 04/02/17 15:05 MPV 7.6 fl 04/02/17 15:05 Neutrophils % 57.2 % (40.0-80.0) 04/02/17 15:05 Lymphocytes % 33.2 % (20.0-50.0) 04/02/17 15:05 Monocytes % 6.3 % (2.0-10.0) 04/02/17 15:05 Eosinophils % 2.2 % (0.0-5.0) 04/02/17 15:05 Basophils % 1.1 % (0.0-2.0) 04/02/17 15:05 Sodium 135 mEq/L (136-145) L 04/02/17 15:05 Potassium 3.7 mEq/L (3.5-5.1) 04/02/17 15:05 Chloride 102 mEq/L (98-107) 04/02/17 15:05 Carbon Dioxide 28.3 mEq/L (21.0-31.0) 04/02/17 15:05 Anion Gap 8.4 (7.0-16.0) 04/02/17 15:05 BUN 13 mg/dL (7-25) 04/02/17 15:05 Creatinine 0.9 mg/dL (0.7-1.3) 04/02/17 15:05 Est GFR ( Amer) > 60.0 ml/min (>90) 04/02/17 15:05 Est GFR (Non-Af Amer) > 60.0 ml/min 04/02/17 15:05 BUN/Creatinine Ratio 14.4 04/02/17 15:05 Glucose 84 mg/dL (70-105) 04/02/17 15:05 Calcium 9.3 mg/dL (8.6-10.3) 04/02/17 15:05 Total Bilirubin 0.4 mg/dL (0.3-1.0) 04/02/17 15:05 AST 49 U/L (13-39) H 04/02/17 15:05 ALT 70 U/L (7-52) H 04/02/17 15:05 Alkaline Phosphatase 63 U/L (34-104) 04/02/17 15:05 Total Protein 7.0 gm/dL (6.0-8.3) 04/02/17 15:05 Albumin 4.5 gm/dL (4.2-5.5) 04/02/17 15:05 Globulin 2.5 gm/dL 04/02/17 15:05 Albumin/Globulin Ratio 1.8 (1.0-1.8) 04/02/17 15:05 - Physical Exam Vitals and I&O: Vital Signs Temp 97.8 F 04/09/17 06:51 Pulse 87 04/09/17 06:51 Resp 18 04/09/17 08:00 BP 144/71 04/09/17 06:51 Pulse Ox 93 04/09/17 06:51 Intake & Output 04/08/17 04/09/17 04/09/17 18:59 06:59 18:59 Intake Total 1320 Output Total 0 Balance 1320 Intake: Oral 1320 Output: Stool 0 Other: # Voids 3 # Bowel Movements 0 Active Medications: Current Medications Acetaminophen (Tylenol) 650 mg PO Q4H PRN PRN Reason: Mild Pain/Headache/T above 101 Stop: 06/01/17 17:21 Last Admin: 04/03/17 09:21 Dose: 650 mg Al Hydrox/Mg Hydrox/Simethicone (Maalox) 30 ml PO Q6H PRN PRN Reason: Dyspepsia Stop: 06/01/17 17:21 Atorvastatin Calcium (Lipitor) 10 mg PO DAILY MIKE PRN Reason: Protocol Stop: 06/03/17 08:59 Last Admin: 04/09/17 09:11 Dose: 10 mg Lorazepam (Ativan) 0.5 mg PO Q4HR PRN; Protocol PRN Reason: Agitation Stop: 06/01/17 17:21 Last Admin: 04/04/17 16:21 Dose: 0.5 mg Lorazepam (Ativan) 1 mg PO TID MIKE PRN Reason: Protocol Stop: 06/06/17 13:59 Last Admin: 04/09/17 09:11 Dose: 1 mg Magnesium Chloride (Slow-Mag) 1 ect PO DAILY MIKE Stop: 06/07/17 08:59 Last Admin: 04/08/17 09:46 Dose: 1 ect Magnesium Hydroxide (Milk Of Magnesia) 30 ml PO DAILY PRN PRN Reason: Constipation Stop: 06/01/17 17:21 Multivitamins/Vitamin C (Theragran) 1 tab PO DAILY MIKE Stop: 06/03/17 08:59 Last Admin: 04/09/17 09:11 Dose: 1 tab Quetiapine Fumarate (Seroquel) 37.5 mg PO BID MIKE PRN Reason: Protocol Stop: 06/04/17 16:59 Last Admin: 04/09/17 09:11 Dose: 37.5 mg Thiamine HCl (Vitamin B1) 100 mg PO DAILY MIKE Stop: 06/03/17 08:59 Last Admin: 04/09/17 09:11 Dose: 100 mg Zolpidem Tartrate (Ambien) 5 mg PO HS PRN PRN Reason: Insomnia Stop: 06/01/17 17:21 General: lethargic, demented HEENT: NC/AT, PERRLA, thinning hair, poor dentition Neck: Supple, No thyromegaly Lungs: CTAB Cardiovascular: RRR, Normal S1, Normal S2, without murmur Abdomen: soft, non-tender, globular, positive bowel sound Extremities: excoriation Internal Medicine Assmt/Plan - Assessment Assessment: AGITATION PSYCHOSIS ALTERED MENTAL STATUS DEMENTIA DYSLIPIDEMIA ALS - Plan Plan: continue with nutritional support symptomatic care and tx continue present management
[2017-04-09] MEDS: Magnesium Chloride EC 64mg Tab PO SCH (18:54)
--- NOTE | 2017-04-10 07:43 | Progress Notes ---
DATE: 04/10/2017 SUBJECTIVE: Chart reviewed and the patient interviewed. Also discussed the patient's condition with the staff and reviewed records and labs. The patient continued to be confused and is still unpredictable. The patient also is selectively mute. The patient is staring at me and he did not answer much of my questions and seems to be preoccupied. Also, is still craving to drink. The patient also is still having episodes of agitation and irritability, as well as his confusion. Otherwise, the patient is compliant with taking his medications with no side effects of medications. ASSESSMENT: The patient is still confused and agitated. TREATMENT PLAN: Seroquel was increased to 37.5 mg twice a day with no side effects. We will continue same dose. Also, continue to monitor detox possibility from alcohol. Also, continue to work on his anger and irritability, and we will continue to follow up. Also, working on rehabilitation. JOB# [id number]
[2017-04-10] MEDS: Multivitamin Tab PO SCH (08:33)
[2017-04-10] MEDS: Atorvastatin Calcium 10 MG TAB PO SCH (08:33)
[2017-04-10] MEDS: Magnesium Chloride EC 64mg Tab PO SCH (08:39)
--- NOTE | 2017-04-10 11:38 | Internal Medicine Prog Note ---
Internal Medicine Subjective - Subjective Service Date: 04/10/17 Patient is:: awake, non-verbal, non-interactive, damien chair Per staff patient has:: no adverse event, no episodes of fall, poor appetite, noncompliant, tolerating meds Internal Medicine Objective - Results Result Diagrams: 04/02/17 15:05 04/02/17 15:05 Recent Labs: Laboratory Last Values WBC 10.7 Th/cmm (4.8-10.8) 04/02/17 15:05 RBC 4.28 Mil/cmm (4.30-5.70) L 04/02/17 15:05 Hgb 14.1 gm/dL (12-16) 04/02/17 15:05 Hct 40.3 % (41.0-60) L 04/02/17 15:05 MCV 94.0 fl (80-99) 04/02/17 15:05 MCH 33.0 pg (26.0-30.0) H 04/02/17 15:05 MCHC Differential 35.1 pg (28.0-36.0) 04/02/17 15:05 RDW 13.1 % (11.5-20.0) 04/02/17 15:05 Plt Count 144 Th/cmm (150-400) L 04/02/17 15:05 MPV 7.6 fl 04/02/17 15:05 Neutrophils % 57.2 % (40.0-80.0) 04/02/17 15:05 Lymphocytes % 33.2 % (20.0-50.0) 04/02/17 15:05 Monocytes % 6.3 % (2.0-10.0) 04/02/17 15:05 Eosinophils % 2.2 % (0.0-5.0) 04/02/17 15:05 Basophils % 1.1 % (0.0-2.0) 04/02/17 15:05 Sodium 135 mEq/L (136-145) L 04/02/17 15:05 Potassium 3.7 mEq/L (3.5-5.1) 04/02/17 15:05 Chloride 102 mEq/L (98-107) 04/02/17 15:05 Carbon Dioxide 28.3 mEq/L (21.0-31.0) 04/02/17 15:05 Anion Gap 8.4 (7.0-16.0) 04/02/17 15:05 BUN 13 mg/dL (7-25) 04/02/17 15:05 Creatinine 0.9 mg/dL (0.7-1.3) 04/02/17 15:05 Est GFR ( Amer) > 60.0 ml/min (>90) 04/02/17 15:05 Est GFR (Non-Af Amer) > 60.0 ml/min 04/02/17 15:05 BUN/Creatinine Ratio 14.4 04/02/17 15:05 Glucose 84 mg/dL (70-105) 04/02/17 15:05 Calcium 9.3 mg/dL (8.6-10.3) 04/02/17 15:05 Total Bilirubin 0.4 mg/dL (0.3-1.0) 04/02/17 15:05 AST 49 U/L (13-39) H 04/02/17 15:05 ALT 70 U/L (7-52) H 04/02/17 15:05 Alkaline Phosphatase 63 U/L (34-104) 04/02/17 15:05 Total Protein 7.0 gm/dL (6.0-8.3) 04/02/17 15:05 Albumin 4.5 gm/dL (4.2-5.5) 04/02/17 15:05 Globulin 2.5 gm/dL 04/02/17 15:05 Albumin/Globulin Ratio 1.8 (1.0-1.8) 04/02/17 15:05 - Physical Exam Vitals and I&O: Vital Signs Temp 97.9 F 04/10/17 06:26 Pulse 93 04/10/17 06:26 Resp 18 04/10/17 06:26 BP 148/74 04/10/17 06:26 Pulse Ox 97 04/10/17 06:26 Intake & Output 04/09/17 04/10/17 04/10/17 18:59 06:59 18:59 Intake Total 800 120 Balance 800 120 Intake: Oral 800 120 Other: # Voids 4 3 # Bowel Movements 0 Active Medications: Current Medications Acetaminophen (Tylenol) 650 mg PO Q4H PRN PRN Reason: Mild Pain/Headache/T above 101 Stop: 06/01/17 17:21 Last Admin: 04/03/17 09:21 Dose: 650 mg Al Hydrox/Mg Hydrox/Simethicone (Maalox) 30 ml PO Q6H PRN PRN Reason: Dyspepsia Stop: 06/01/17 17:21 Atorvastatin Calcium (Lipitor) 10 mg PO DAILY MIKE PRN Reason: Protocol Stop: 06/03/17 08:59 Last Admin: 04/10/17 08:33 Dose: 10 mg Lorazepam (Ativan) 0.5 mg PO Q4HR PRN; Protocol PRN Reason: Agitation Stop: 06/01/17 17:21 Last Admin: 04/04/17 16:21 Dose: 0.5 mg Lorazepam (Ativan) 1 mg PO TID MIKE PRN Reason: Protocol Stop: 06/06/17 13:59 Last Admin: 04/10/17 08:32 Dose: 1 mg Magnesium Chloride (Slow-Mag) 1 ect PO DAILY MIKE Stop: 06/07/17 08:59 Last Admin: 04/10/17 08:39 Dose: 1 ect Magnesium Hydroxide (Milk Of Magnesia) 30 ml PO DAILY PRN PRN Reason: Constipation Stop: 06/01/17 17:21 Multivitamins/Vitamin C (Theragran) 1 tab PO DAILY MIKE Stop: 06/03/17 08:59 Last Admin: 04/10/17 08:33 Dose: 1 tab Quetiapine Fumarate (Seroquel) 37.5 mg PO BID MIKE PRN Reason: Protocol Stop: 06/04/17 16:59 Last Admin: 04/10/17 08:33 Dose: 37.5 mg Thiamine HCl (Vitamin B1) 100 mg PO DAILY MIKE Stop: 06/03/17 08:59 Last Admin: 04/10/17 08:32 Dose: 100 mg Zolpidem Tartrate (Ambien) 5 mg PO HS PRN PRN Reason: Insomnia Stop: 06/01/17 17:21 Last Admin: 04/09/17 20:55 Dose: 5 mg General: lethargic, demented HEENT: NC/AT, PERRLA, thinning hair, poor dentition Neck: Supple, No thyromegaly Lungs: CTAB Cardiovascular: RRR, Normal S1, Normal S2, without murmur Abdomen: soft, non-tender, globular, positive bowel sound Extremities: excoriation Internal Medicine Assmt/Plan - Assessment Assessment: AGITATION PSYCHOSIS ALTERED MENTAL STATUS DEMENTIA DYSLIPIDEMIA ALS - Plan Plan: continue with nutritional support symptomatic care and tx continue present management
--- NOTE | 2017-04-11 07:00 | Progress Notes ---
DATE: 04/11/2017 SUBJECTIVE: Chart reviewed and the patient interviewed. Also discussed the patient's condition with the staff and reviewed records and labs. The patient is still hallucinating and he is still unable to carry on any coherent conversation. When I was asked the patient about his 's name, he kept talking about different topics and different issues of unrelated. Also, he still wants to be left alone and he still seems to be severely depressed. He also will have poor eye contact with low tone and rate of speech during the interview. ASSESSMENT: The patient is still depressed and still high risk for relapse and going through withdrawal. TREATMENT PLAN: We will continue monitoring his behavior and his condition closely. Also, continue to work on his anger and irritability and we will continue to follow up. JOB# [id number]
[2017-04-11] MEDS: Multivitamin Tab PO SCH (09:32)
[2017-04-11] MEDS: Atorvastatin Calcium 10 MG TAB PO SCH (09:32)
[2017-04-11] MEDS: Magnesium Chloride EC 64mg Tab PO SCH (09:44)
--- NOTE | 2017-04-11 12:51 | Internal Medicine Prog Note ---
Internal Medicine Subjective - Subjective Service Date: 04/11/17 (spoke to patients at bedside and wishes for patient to have palliative care and to be in a locked psych unit. she is unable to care for him at home. ) Patient is:: awake, in bed Per staff patient has:: no adverse event, no episodes of fall, poor appetite, noncompliant, tolerating meds Internal Medicine Objective - Results Result Diagrams: 04/02/17 15:05 04/02/17 15:05 Recent Labs: Laboratory Last Values WBC 10.7 Th/cmm (4.8-10.8) 04/02/17 15:05 RBC 4.28 Mil/cmm (4.30-5.70) L 04/02/17 15:05 Hgb 14.1 gm/dL (12-16) 04/02/17 15:05 Hct 40.3 % (41.0-60) L 04/02/17 15:05 MCV 94.0 fl (80-99) 04/02/17 15:05 MCH 33.0 pg (26.0-30.0) H 04/02/17 15:05 MCHC Differential 35.1 pg (28.0-36.0) 04/02/17 15:05 RDW 13.1 % (11.5-20.0) 04/02/17 15:05 Plt Count 144 Th/cmm (150-400) L 04/02/17 15:05 MPV 7.6 fl 04/02/17 15:05 Neutrophils % 57.2 % (40.0-80.0) 04/02/17 15:05 Lymphocytes % 33.2 % (20.0-50.0) 04/02/17 15:05 Monocytes % 6.3 % (2.0-10.0) 04/02/17 15:05 Eosinophils % 2.2 % (0.0-5.0) 04/02/17 15:05 Basophils % 1.1 % (0.0-2.0) 04/02/17 15:05 Sodium 135 mEq/L (136-145) L 04/02/17 15:05 Potassium 3.7 mEq/L (3.5-5.1) 04/02/17 15:05 Chloride 102 mEq/L (98-107) 04/02/17 15:05 Carbon Dioxide 28.3 mEq/L (21.0-31.0) 04/02/17 15:05 Anion Gap 8.4 (7.0-16.0) 04/02/17 15:05 BUN 13 mg/dL (7-25) 04/02/17 15:05 Creatinine 0.9 mg/dL (0.7-1.3) 04/02/17 15:05 Est GFR ( Amer) > 60.0 ml/min (>90) 04/02/17 15:05 Est GFR (Non-Af Amer) > 60.0 ml/min 04/02/17 15:05 BUN/Creatinine Ratio 14.4 04/02/17 15:05 Glucose 84 mg/dL (70-105) 04/02/17 15:05 Calcium 9.3 mg/dL (8.6-10.3) 04/02/17 15:05 Total Bilirubin 0.4 mg/dL (0.3-1.0) 04/02/17 15:05 AST 49 U/L (13-39) H 04/02/17 15:05 ALT 70 U/L (7-52) H 04/02/17 15:05 Alkaline Phosphatase 63 U/L (34-104) 04/02/17 15:05 Total Protein 7.0 gm/dL (6.0-8.3) 04/02/17 15:05 Albumin 4.5 gm/dL (4.2-5.5) 04/02/17 15:05 Globulin 2.5 gm/dL 04/02/17 15:05 Albumin/Globulin Ratio 1.8 (1.0-1.8) 04/02/17 15:05 - Physical Exam Vitals and I&O: Vital Signs Temp 97 F 04/11/17 06:40 Pulse 82 04/11/17 06:40 Resp 20 04/11/17 06:40 BP 141/69 04/11/17 06:40 Pulse Ox 98 04/11/17 06:40 Intake & Output 04/10/17 04/11/17 04/11/17 18:59 06:59 18:59 Intake Total 560 120 Balance 560 120 Intake: Oral 560 120 Other: # Voids 3 3 # Bowel Movements 0 Active Medications: Current Medications Acetaminophen (Tylenol) 650 mg PO Q4H PRN PRN Reason: Mild Pain/Headache/T above 101 Stop: 06/01/17 17:21 Last Admin: 04/03/17 09:21 Dose: 650 mg Al Hydrox/Mg Hydrox/Simethicone (Maalox) 30 ml PO Q6H PRN PRN Reason: Dyspepsia Stop: 06/01/17 17:21 Atorvastatin Calcium (Lipitor) 10 mg PO DAILY MIKE PRN Reason: Protocol Stop: 06/03/17 08:59 Last Admin: 04/11/17 09:32 Dose: 10 mg Lorazepam (Ativan) 0.5 mg PO Q4HR PRN; Protocol PRN Reason: Agitation Stop: 06/01/17 17:21 Last Admin: 04/04/17 16:21 Dose: 0.5 mg Lorazepam (Ativan) 1 mg PO TID MIKE PRN Reason: Protocol Stop: 06/06/17 13:59 Last Admin: 04/11/17 09:33 Dose: 1 mg Magnesium Chloride (Slow-Mag) 1 ect PO DAILY MIKE Stop: 06/07/17 08:59 Last Admin: 04/11/17 09:44 Dose: 1 ect Magnesium Hydroxide (Milk Of Magnesia) 30 ml PO DAILY PRN PRN Reason: Constipation Stop: 06/01/17 17:21 Multivitamins/Vitamin C (Theragran) 1 tab PO DAILY MIKE Stop: 06/03/17 08:59 Last Admin: 04/11/17 09:32 Dose: 1 tab Quetiapine Fumarate (Seroquel) 37.5 mg PO BID MIKE PRN Reason: Protocol Stop: 06/04/17 16:59 Last Admin: 04/11/17 09:00 Dose: 37.5 mg Thiamine HCl (Vitamin B1) 100 mg PO DAILY MIKE Stop: 06/03/17 08:59 Last Admin: 04/11/17 09:32 Dose: 100 mg Zolpidem Tartrate (Ambien) 5 mg PO HS PRN PRN Reason: Insomnia Stop: 06/01/17 17:21 Last Admin: 04/10/17 21:03 Dose: 5 mg General: lethargic, demented HEENT: NC/AT, PERRLA, thinning hair, poor dentition Neck: Supple, No thyromegaly Lungs: CTAB Cardiovascular: RRR, Normal S1, Normal S2, without murmur Abdomen: soft, non-tender, globular, positive bowel sound Extremities: excoriation Internal Medicine Assmt/Plan - Assessment Assessment: AGITATION PSYCHOSIS ALTERED MENTAL STATUS DEMENTIA DYSLIPIDEMIA ALS - Plan Plan: snf (locked psych) placement as requested by continue with nutritional support symptomatic care and tx continue present management Nutritional Asmnt/Malnutr-PDOC - Dietary Evaluation Malnutrition Findings (Please click <Entered> for more info): Nutritional Asmnt/Malnutrition Start: 04/10/17 18: 21 Text: Status: Complete Freq: Document 04/10/17 18:21 GSUN (Rec: 04/10/17 18:43 GSUN [email or web address]) Nutritional Asmnt/Malnutrition Patient General Information Nutritional Screening Diagnosis Diagnosis Unspecified psychosis Pertinent Medical Hx/Surgical Hx Dyslipidemia, dementia, appendectomy Subjective Information 66 year old male. Pt is a poor historian. Avg PO intake is sporadic, 0% all three meals today, 100% all three meals on 04/08. Visited pt during meal time, observed SPECIALIST MANAGERS providing total assist, pt's head tilted to one side. SPECIALIST MANAGERS stated pt will state if he wants to eat or not, pt might have difficulty swallowing due to head tilted with one side, however no coughing noted. CBW 184lb via bedscale, no severe muscle/fat wasting noted. Current Diet Order/ Nutrition Support Regular, Boost TID Pertinent Medications Lipitor, Slow-Ying, MOM, Theragran, Seroquel, Vitamin B1 Pertinent Labs Reviewed. Nutritional Hx/Data Height 6 ft 1 in Height (Calculated Centimeters) 185.4 Current Weight (lbs) 184 lb Weight (Calculated Kilograms) 83.5 Weight (Calculated Grams) 34064.0 [place] Body Weight 184 Weight Status Approriate GI Symptoms Food Allergies No Skin Integrity/Comment: Cory 16. Skin intact. Estimated Nutritional Goals BEE in Kcals: Using Current wt Calories/Kcals/Kg CBW 184lb/83.6kg Kcals Calculated 0-2508kcal (25-30kcal/kg) Protein: Using Current wt Protein Calculated 84g (1g/kg) Fluid: ml 0-2508ml (1ml/kcal) Nutritional Problem 1. Problem Problem Iandequate oral food beverage intake related to Etiology likely cognition aeb Signs/Symptoms: meal intake ranges 0-100%, avg is not meeting nutritinoal needs Intervention/Recommendation Comments 1. Continue with current diet order. Pt's meal intake is sporadic, ranging 0% on days and 100% on other days. Avg PO intake is inadequate. Nursing staff to encourage meals and provide total assistance. 2. Monitor tolerance to meals. Per MARY ANN Jones report, pt's head is tilted to one side and may be at risk of difficulty swallowing. Expected Outcomes/Goals Expected Outcomes/Goals 1. PO intake to meet at least 75% of estimated nutritinoal needs.
[2017-04-12] MEDS: Multivitamin Tab PO SCH (08:47)
[2017-04-12] MEDS: Atorvastatin Calcium 10 MG TAB PO SCH (08:48)
[2017-04-12] MEDS: Magnesium Chloride EC 64mg Tab PO SCH (09:03)
--- NOTE | 2017-04-12 12:10 | Internal Medicine Prog Note ---
Internal Medicine Subjective - Subjective Service Date: 04/12/17 Patient is:: awake, in bed Per staff patient has:: no adverse event, no episodes of fall, poor appetite, noncompliant, tolerating meds Internal Medicine Objective - Results Result Diagrams: 04/02/17 15:05 04/02/17 15:05 Recent Labs: Laboratory Last Values WBC 10.7 Th/cmm (4.8-10.8) 04/02/17 15:05 RBC 4.28 Mil/cmm (4.30-5.70) L 04/02/17 15:05 Hgb 14.1 gm/dL (12-16) 04/02/17 15:05 Hct 40.3 % (41.0-60) L 04/02/17 15:05 MCV 94.0 fl (80-99) 04/02/17 15:05 MCH 33.0 pg (26.0-30.0) H 04/02/17 15:05 MCHC Differential 35.1 pg (28.0-36.0) 04/02/17 15:05 RDW 13.1 % (11.5-20.0) 04/02/17 15:05 Plt Count 144 Th/cmm (150-400) L 04/02/17 15:05 MPV 7.6 fl 04/02/17 15:05 Neutrophils % 57.2 % (40.0-80.0) 04/02/17 15:05 Lymphocytes % 33.2 % (20.0-50.0) 04/02/17 15:05 Monocytes % 6.3 % (2.0-10.0) 04/02/17 15:05 Eosinophils % 2.2 % (0.0-5.0) 04/02/17 15:05 Basophils % 1.1 % (0.0-2.0) 04/02/17 15:05 Sodium 135 mEq/L (136-145) L 04/02/17 15:05 Potassium 3.7 mEq/L (3.5-5.1) 04/02/17 15:05 Chloride 102 mEq/L (98-107) 04/02/17 15:05 Carbon Dioxide 28.3 mEq/L (21.0-31.0) 04/02/17 15:05 Anion Gap 8.4 (7.0-16.0) 04/02/17 15:05 BUN 13 mg/dL (7-25) 04/02/17 15:05 Creatinine 0.9 mg/dL (0.7-1.3) 04/02/17 15:05 Est GFR ( Amer) > 60.0 ml/min (>90) 04/02/17 15:05 Est GFR (Non-Af Amer) > 60.0 ml/min 04/02/17 15:05 BUN/Creatinine Ratio 14.4 04/02/17 15:05 Glucose 84 mg/dL (70-105) 04/02/17 15:05 Calcium 9.3 mg/dL (8.6-10.3) 04/02/17 15:05 Total Bilirubin 0.4 mg/dL (0.3-1.0) 04/02/17 15:05 AST 49 U/L (13-39) H 04/02/17 15:05 ALT 70 U/L (7-52) H 04/02/17 15:05 Alkaline Phosphatase 63 U/L (34-104) 04/02/17 15:05 Total Protein 7.0 gm/dL (6.0-8.3) 04/02/17 15:05 Albumin 4.5 gm/dL (4.2-5.5) 04/02/17 15:05 Globulin 2.5 gm/dL 04/02/17 15:05 Albumin/Globulin Ratio 1.8 (1.0-1.8) 04/02/17 15:05 - Physical Exam Vitals and I&O: Vital Signs Temp 98.2 F 04/12/17 06:45 Pulse 80 04/12/17 11:16 Resp 18 04/12/17 11:16 BP 137/71 04/12/17 06:45 Pulse Ox 98 04/12/17 06:45 Intake & Output 04/11/17 04/12/17 04/12/17 18:59 06:59 18:59 Intake Total 150 120 Balance 150 120 Intake: Oral 150 120 Other: # Voids 2 3 Active Medications: Current Medications Acetaminophen (Tylenol) 650 mg PO Q4H PRN PRN Reason: Mild Pain/Headache/T above 101 Stop: 06/01/17 17:21 Last Admin: 04/11/17 14:13 Dose: 650 mg Al Hydrox/Mg Hydrox/Simethicone (Maalox) 30 ml PO Q6H PRN PRN Reason: Dyspepsia Stop: 06/01/17 17:21 Atorvastatin Calcium (Lipitor) 10 mg PO DAILY MIKE PRN Reason: Protocol Stop: 06/03/17 08:59 Last Admin: 04/12/17 08:48 Dose: 10 mg Lorazepam (Ativan) 0.5 mg PO Q4HR PRN; Protocol PRN Reason: Agitation Stop: 06/01/17 17:21 Last Admin: 04/04/17 16:21 Dose: 0.5 mg Lorazepam (Ativan) 1 mg PO TID MIKE PRN Reason: Protocol Stop: 06/06/17 13:59 Last Admin: 04/12/17 08:49 Dose: 1 mg Magnesium Chloride (Slow-Mag) 1 ect PO DAILY MIKE Stop: 06/07/17 08:59 Last Admin: 04/12/17 09:03 Dose: 1 ect Magnesium Hydroxide (Milk Of Magnesia) 30 ml PO DAILY PRN PRN Reason: Constipation Stop: 06/01/17 17:21 Multivitamins/Vitamin C (Theragran) 1 tab PO DAILY MIKE Stop: 06/03/17 08:59 Last Admin: 04/12/17 08:47 Dose: 1 tab Quetiapine Fumarate (Seroquel) 37.5 mg PO BID MIKE PRN Reason: Protocol Stop: 06/04/17 16:59 Last Admin: 04/12/17 08:48 Dose: 37.5 mg Thiamine HCl (Vitamin B1) 100 mg PO DAILY MIKE Stop: 06/03/17 08:59 Last Admin: 04/12/17 08:47 Dose: 100 mg Zolpidem Tartrate (Ambien) 5 mg PO HS PRN PRN Reason: Insomnia Stop: 06/01/17 17:21 Last Admin: 04/11/17 20:38 Dose: 5 mg General: lethargic, demented HEENT: NC/AT, PERRLA, thinning hair, poor dentition Neck: Supple, No thyromegaly Lungs: CTAB Cardiovascular: RRR, Normal S1, Normal S2, without murmur Abdomen: soft, non-tender, globular, positive bowel sound Extremities: excoriation Internal Medicine Assmt/Plan - Assessment Assessment: AGITATION PSYCHOSIS ALTERED MENTAL STATUS DEMENTIA DYSLIPIDEMIA ALS - Plan Plan: snf (locked psych) placement as requested by continue with nutritional support symptomatic care and tx continue present management Nutritional Asmnt/Malnutr-PDOC - Dietary Evaluation Malnutrition Findings (Please click <Entered> for more info): Nutritional Asmnt/Malnutrition Start: 04/10/17 18: 21 Text: Status: Complete Freq: Document 04/10/17 18:21 GSUN (Rec: 04/10/17 18:43 GSUN [email or web address]) Nutritional Asmnt/Malnutrition Patient General Information Nutritional Screening Diagnosis Diagnosis Unspecified psychosis Pertinent Medical Hx/Surgical Hx Dyslipidemia, dementia, appendectomy Subjective Information 66 year old male. Pt is a poor historian. Avg PO intake is sporadic, 0% all three meals today, 100% all three meals on 04/08. Visited pt during meal time, observed ROOF SHINGLER providing total assist, pt's head tilted to one side. ROOF SHINGLER stated pt will state if he wants to eat or not, pt might have difficulty swallowing due to head tilted with one side, however no coughing noted. CBW 184lb via bedscale, no severe muscle/fat wasting noted. Current Diet Order/ Nutrition Support Regular, Boost TID Pertinent Medications Lipitor, Slow-Ying, MOM, Theragran, Seroquel, Vitamin B1 Pertinent Labs Reviewed. Nutritional Hx/Data Height 6 ft 1 in Height (Calculated Centimeters) 185.4 Current Weight (lbs) 184 lb Weight (Calculated Kilograms) 83.5 Weight (Calculated Grams) 80510.0 [place] Body Weight 184 Weight Status Approriate GI Symptoms Food Allergies No Skin Integrity/Comment: Cory 16. Skin intact. Estimated Nutritional Goals BEE in Kcals: Using Current wt Calories/Kcals/Kg CBW 184lb/83.6kg Kcals Calculated 2090-2508kcal (25-30kcal/kg) Protein: Using Current wt Protein Calculated 84g (1g/kg) Fluid: ml 2090-2508ml (1ml/kcal) Nutritional Problem 1. Problem Problem Iandequate oral food beverage intake related to Etiology likely cognition aeb Signs/Symptoms: meal intake ranges 0-100%, avg is not meeting nutritinoal needs Intervention/Recommendation Comments 1. Continue with current diet order. Pt's meal intake is sporadic, ranging 0% on days and 100% on other days. Avg PO intake is inadequate. Nursing staff to encourage meals and provide total assistance. 2. Monitor tolerance to meals. Per MARY ANN Jones report, pt's head is tilted to one side and may be at risk of difficulty swallowing. Expected Outcomes/Goals Expected Outcomes/Goals 1. PO intake to meet at least 75% of estimated nutritinoal needs.
[2017-04-13] MEDS: Atorvastatin Calcium 10 MG TAB PO SCH (08:34)
[2017-04-13] MEDS: Multivitamin Tab PO SCH (08:34)
[2017-04-13] MEDS: Magnesium Chloride EC 64mg Tab PO SCH (08:38)
--- NOTE | 2017-04-13 10:22 | Progress Notes ---
DATE: Covering for Dr. Carter. SUBJECTIVE: The patient was seen and evaluated. The patient's chart reviewed. Overnight nursing staff reporting that the patient is improving in regards to the detox protocol. Today on [id number] evaluation, his is on ____ reported the extensive history of frontal lobe dementia. He reportedly has been severely decompensating and ____ about the alcohol. Today on face-to face evaluation, the patient is ____ verbal difficulty, unable to engage in a conversation, but he is able to shake hands and ____ still noted to be depressed and high risk for ____. ASSESSMENT AND PLAN: The patient is a 66-year-old male with frontal lobe dementia by history, withdrawing safely with Ativan, unable to formulate a safe plan. We will continue with quetiapine ____ in the meantime to target the patient's high risk of seizure withdrawal. JOB# [id number]
--- NOTE | 2017-04-13 15:01 | Internal Medicine Prog Note ---
Internal Medicine Subjective - Subjective Service Date: 04/13/17 Patient is:: awake, in bed Per staff patient has:: no adverse event, no episodes of fall, poor appetite, noncompliant, tolerating meds Internal Medicine Objective - Results Result Diagrams: 04/02/17 15:05 04/02/17 15:05 Recent Labs: Laboratory Last Values WBC 10.7 Th/cmm (4.8-10.8) 04/02/17 15:05 RBC 4.28 Mil/cmm (4.30-5.70) L 04/02/17 15:05 Hgb 14.1 gm/dL (12-16) 04/02/17 15:05 Hct 40.3 % (41.0-60) L 04/02/17 15:05 MCV 94.0 fl (80-99) 04/02/17 15:05 MCH 33.0 pg (26.0-30.0) H 04/02/17 15:05 MCHC Differential 35.1 pg (28.0-36.0) 04/02/17 15:05 RDW 13.1 % (11.5-20.0) 04/02/17 15:05 Plt Count 144 Th/cmm (150-400) L 04/02/17 15:05 MPV 7.6 fl 04/02/17 15:05 Neutrophils % 57.2 % (40.0-80.0) 04/02/17 15:05 Lymphocytes % 33.2 % (20.0-50.0) 04/02/17 15:05 Monocytes % 6.3 % (2.0-10.0) 04/02/17 15:05 Eosinophils % 2.2 % (0.0-5.0) 04/02/17 15:05 Basophils % 1.1 % (0.0-2.0) 04/02/17 15:05 Sodium 135 mEq/L (136-145) L 04/02/17 15:05 Potassium 3.7 mEq/L (3.5-5.1) 04/02/17 15:05 Chloride 102 mEq/L (98-107) 04/02/17 15:05 Carbon Dioxide 28.3 mEq/L (21.0-31.0) 04/02/17 15:05 Anion Gap 8.4 (7.0-16.0) 04/02/17 15:05 BUN 13 mg/dL (7-25) 04/02/17 15:05 Creatinine 0.9 mg/dL (0.7-1.3) 04/02/17 15:05 Est GFR ( Amer) > 60.0 ml/min (>90) 04/02/17 15:05 Est GFR (Non-Af Amer) > 60.0 ml/min 04/02/17 15:05 BUN/Creatinine Ratio 14.4 04/02/17 15:05 Glucose 84 mg/dL (70-105) 04/02/17 15:05 Calcium 9.3 mg/dL (8.6-10.3) 04/02/17 15:05 Total Bilirubin 0.4 mg/dL (0.3-1.0) 04/02/17 15:05 AST 49 U/L (13-39) H 04/02/17 15:05 ALT 70 U/L (7-52) H 04/02/17 15:05 Alkaline Phosphatase 63 U/L (34-104) 04/02/17 15:05 Total Protein 7.0 gm/dL (6.0-8.3) 04/02/17 15:05 Albumin 4.5 gm/dL (4.2-5.5) 04/02/17 15:05 Globulin 2.5 gm/dL 04/02/17 15:05 Albumin/Globulin Ratio 1.8 (1.0-1.8) 04/02/17 15:05 - Physical Exam Vitals and I&O: Vital Signs Temp 97.9 F 04/13/17 06:53 Pulse 79 04/13/17 10:13 Resp 20 04/13/17 10:13 BP 141/77 04/13/17 06:53 Pulse Ox 97 04/13/17 06:53 Intake & Output 04/12/17 04/13/17 04/13/17 18:59 06:59 18:59 Intake Total 500 480 Balance 500 480 Intake: Oral 500 480 Other: # Voids 1 1 # Bowel Movements 1 Stool Characteristics Soft Formed Active Medications: Current Medications Acetaminophen (Tylenol) 650 mg PO Q4H PRN PRN Reason: Mild Pain/Headache/T above 101 Stop: 06/01/17 17:21 Last Admin: 04/13/17 10:07 Dose: 650 mg Al Hydrox/Mg Hydrox/Simethicone (Maalox) 30 ml PO Q6H PRN PRN Reason: Dyspepsia Stop: 06/01/17 17:21 Atorvastatin Calcium (Lipitor) 10 mg PO DAILY MIKE PRN Reason: Protocol Stop: 06/03/17 08:59 Last Admin: 04/13/17 08:34 Dose: 10 mg Lorazepam (Ativan) 0.5 mg PO Q4HR PRN; Protocol PRN Reason: Agitation Stop: 06/01/17 17:21 Last Admin: 04/04/17 16:21 Dose: 0.5 mg Lorazepam (Ativan) 1 mg PO TID MIKE PRN Reason: Protocol Stop: 06/06/17 13:59 Last Admin: 04/13/17 14:53 Dose: 1 mg Magnesium Chloride (Slow-Mag) 1 ect PO DAILY MIKE Stop: 06/07/17 08:59 Last Admin: 04/13/17 08:38 Dose: 1 ect Magnesium Hydroxide (Milk Of Magnesia) 30 ml PO DAILY PRN PRN Reason: Constipation Stop: 06/01/17 17:21 Last Admin: 04/13/17 08:38 Dose: 30 ml Multivitamins/Vitamin C (Theragran) 1 tab PO DAILY MIKE Stop: 06/03/17 08:59 Last Admin: 04/13/17 08:34 Dose: 1 tab Quetiapine Fumarate (Seroquel) 37.5 mg PO BID MIKE PRN Reason: Protocol Stop: 06/04/17 16:59 Last Admin: 04/13/17 08:33 Dose: 37.5 mg Thiamine HCl (Vitamin B1) 100 mg PO DAILY MIKE Stop: 06/03/17 08:59 Last Admin: 04/13/17 08:34 Dose: 100 mg Zolpidem Tartrate (Ambien) 5 mg PO HS PRN PRN Reason: Insomnia Stop: 06/01/17 17:21 Last Admin: 04/11/17 20:38 Dose: 5 mg General: lethargic, demented HEENT: NC/AT, PERRLA, thinning hair, poor dentition Neck: Supple, No thyromegaly Lungs: CTAB Cardiovascular: RRR, Normal S1, Normal S2, without murmur Abdomen: soft, non-tender, globular, positive bowel sound Extremities: excoriation Internal Medicine Assmt/Plan - Assessment Assessment: AGITATION PSYCHOSIS ALTERED MENTAL STATUS DEMENTIA DYSLIPIDEMIA ALS - Plan Plan: snf (locked psych) placement as requested by continue with nutritional support symptomatic care and tx continue present management Nutritional Asmnt/Malnutr-PDOC - Dietary Evaluation Malnutrition Findings (Please click <Entered> for more info): Nutritional Asmnt/Malnutrition Start: 04/10/17 18: 21 Text: Status: Complete Freq: Document 04/10/17 18:21 GSUN (Rec: 04/10/17 18:43 GSUN [email or web address]) Nutritional Asmnt/Malnutrition Patient General Information Nutritional Screening Diagnosis Diagnosis Unspecified psychosis Pertinent Medical Hx/Surgical Hx Dyslipidemia, dementia, appendectomy Subjective Information 66 year old male. Pt is a poor historian. Avg PO intake is sporadic, 0% all three meals today, 100% all three meals on 04/08. Visited pt during meal time, observed DATA CODER OPERATOR providing total assist, pt's head tilted to one side. DATA CODER OPERATOR stated pt will state if he wants to eat or not, pt might have difficulty swallowing due to head tilted with one side, however no coughing noted. CBW 184lb via bedscale, no severe muscle/fat wasting noted. Current Diet Order/ Nutrition Support Regular, Boost TID Pertinent Medications Lipitor, Slow-Ying, MOM, Theragran, Seroquel, Vitamin B1 Pertinent Labs Reviewed. Nutritional Hx/Data Height 6 ft 1 in Height (Calculated Centimeters) 185.4 Current Weight (lbs) 184 lb Weight (Calculated Kilograms) 83.5 Weight (Calculated Grams) 44081.0 [place] Body Weight 184 Weight Status Approriate GI Symptoms Food Allergies No Skin Integrity/Comment: Cory 16. Skin intact. Estimated Nutritional Goals BEE in Kcals: Using Current wt Calories/Kcals/Kg CBW 184lb/83.6kg Kcals Calculated 2090-2508kcal (25-30kcal/kg) Protein: Using Current wt Protein Calculated 84g (1g/kg) Fluid: ml 2090-2508ml (1ml/kcal) Nutritional Problem 1. Problem Problem Iandequate oral food beverage intake related to Etiology likely cognition aeb Signs/Symptoms: meal intake ranges 0-100%, avg is not meeting nutritinoal needs Intervention/Recommendation Comments 1. Continue with current diet order. Pt's meal intake is sporadic, ranging 0% on days and 100% on other days. Avg PO intake is inadequate. Nursing staff to encourage meals and provide total assistance. 2. Monitor tolerance to meals. Per MARY ANN Jones report, pt's head is tilted to one side and may be at risk of difficulty swallowing. Expected Outcomes/Goals Expected Outcomes/Goals 1. PO intake to meet at least 75% of estimated nutritinoal needs.
--- NOTE | 2017-04-14 00:29 | Progress Notes ---
DATE: 04/13/2017 Dr. Alva, covering for Dr. Carter. SUBJECTIVE: The patient was seen and evaluated. The patient's chart was reviewed. Overnight, vital signs are stable. No withdrawal symptoms observed overnight. Nursing staff reporting that the patient ____ selectively mute. Today on [id number] evaluation, the patient with a history of frontal lobe dementia, nonverbal, ____ withdrawal symptoms. He shakes his hands, one simple command, but limited historian. ASSESSMENT AND PLAN: This is a 66-year-old male with history of frontotemporal lobe dementia with a history of alcohol use, severe withdrawal symptoms, ameliorated, improving, due to the patient's severe risk of seizure, withdrawn symptoms continues to be high risk ____ we will continue monitoring and evaluating as the patient is safely being detoxed. JOB# [id number]
[2017-04-14] MEDS: Multivitamin Tab PO SCH (09:00)
[2017-04-14] MEDS: Atorvastatin Calcium 10 MG TAB PO SCH (09:01)
--- NOTE | 2017-04-14 11:27 | Progress Notes ---
DATE: 04/14/2017 SUBJECTIVE: Chart reviewed and the patient interviewed. Also discussed the patient's condition with the staff and reviewed records and labs. The patient is still easily agitated and is still in irritable mood. The patient also is confused and he is actively talking to himself and unable to carry on any coherent conversation. He also is still rambling and he is disheveled and personal hygiene is still poor. During interview, the patient is disheveled and he is agitated and unable to answer any of my questions coherently. ASSESSMENT: The patient is still agitated and is still psychotic. TREATMENT PLAN: We will increase Seroquel to 50 mg twice a day. Also, we will continue to monitor the patient for any possibility of detox. Also, we will continue benzodiazepine and work on also discharge plans and placement issue. JOB# [id number]
[2017-04-14] MEDS: Magnesium Chloride EC 64mg Tab PO SCH (12:16)
--- NOTE | 2017-04-14 14:42 | Internal Medicine Prog Note ---
Internal Medicine Subjective - Subjective Service Date: 04/14/17 Patient is:: awake, in bed Per staff patient has:: no adverse event, no episodes of fall, poor appetite, noncompliant, tolerating meds Internal Medicine Objective - Results Result Diagrams: 04/02/17 15:05 04/02/17 15:05 Recent Labs: Laboratory Last Values WBC 10.7 Th/cmm (4.8-10.8) 04/02/17 15:05 RBC 4.28 Mil/cmm (4.30-5.70) L 04/02/17 15:05 Hgb 14.1 gm/dL (12-16) 04/02/17 15:05 Hct 40.3 % (41.0-60) L 04/02/17 15:05 MCV 94.0 fl (80-99) 04/02/17 15:05 MCH 33.0 pg (26.0-30.0) H 04/02/17 15:05 MCHC Differential 35.1 pg (28.0-36.0) 04/02/17 15:05 RDW 13.1 % (11.5-20.0) 04/02/17 15:05 Plt Count 144 Th/cmm (150-400) L 04/02/17 15:05 MPV 7.6 fl 04/02/17 15:05 Neutrophils % 57.2 % (40.0-80.0) 04/02/17 15:05 Lymphocytes % 33.2 % (20.0-50.0) 04/02/17 15:05 Monocytes % 6.3 % (2.0-10.0) 04/02/17 15:05 Eosinophils % 2.2 % (0.0-5.0) 04/02/17 15:05 Basophils % 1.1 % (0.0-2.0) 04/02/17 15:05 Sodium 135 mEq/L (136-145) L 04/02/17 15:05 Potassium 3.7 mEq/L (3.5-5.1) 04/02/17 15:05 Chloride 102 mEq/L (98-107) 04/02/17 15:05 Carbon Dioxide 28.3 mEq/L (21.0-31.0) 04/02/17 15:05 Anion Gap 8.4 (7.0-16.0) 04/02/17 15:05 BUN 13 mg/dL (7-25) 04/02/17 15:05 Creatinine 0.9 mg/dL (0.7-1.3) 04/02/17 15:05 Est GFR ( Amer) > 60.0 ml/min (>90) 04/02/17 15:05 Est GFR (Non-Af Amer) > 60.0 ml/min 04/02/17 15:05 BUN/Creatinine Ratio 14.4 04/02/17 15:05 Glucose 84 mg/dL (70-105) 04/02/17 15:05 Calcium 9.3 mg/dL (8.6-10.3) 04/02/17 15:05 Total Bilirubin 0.4 mg/dL (0.3-1.0) 04/02/17 15:05 AST 49 U/L (13-39) H 04/02/17 15:05 ALT 70 U/L (7-52) H 04/02/17 15:05 Alkaline Phosphatase 63 U/L (34-104) 04/02/17 15:05 Total Protein 7.0 gm/dL (6.0-8.3) 04/02/17 15:05 Albumin 4.5 gm/dL (4.2-5.5) 04/02/17 15:05 Globulin 2.5 gm/dL 04/02/17 15:05 Albumin/Globulin Ratio 1.8 (1.0-1.8) 04/02/17 15:05 - Physical Exam Vitals and I&O: Vital Signs Temp 97.8 F 04/14/17 06:53 Pulse 89 04/14/17 06:53 Resp 20 04/14/17 06:53 BP 118/67 04/14/17 06:53 Pulse Ox 94 04/14/17 06:53 Intake & Output 04/13/17 04/14/17 04/14/17 18:59 06:59 18:59 Intake Total 600 120 Balance 600 120 Intake: Oral 600 120 Other: # Voids 3 3 # Bowel Movements 1 0 Stool Characteristics Soft Soft Formed Formed Active Medications: Current Medications Acetaminophen (Tylenol) 650 mg PO Q4H PRN PRN Reason: Mild Pain/Headache/T above 101 Stop: 06/01/17 17:21 Last Admin: 04/13/17 10:07 Dose: 650 mg Al Hydrox/Mg Hydrox/Simethicone (Maalox) 30 ml PO Q6H PRN PRN Reason: Dyspepsia Stop: 06/01/17 17:21 Atorvastatin Calcium (Lipitor) 10 mg PO DAILY MIKE PRN Reason: Protocol Stop: 06/03/17 08:59 Last Admin: 04/14/17 09:01 Dose: 10 mg Lorazepam (Ativan) 0.5 mg PO Q4HR PRN; Protocol PRN Reason: Agitation Stop: 06/01/17 17:21 Last Admin: 04/04/17 16:21 Dose: 0.5 mg Lorazepam (Ativan) 1 mg PO TID MIKE PRN Reason: Protocol Stop: 06/06/17 13:59 Last Admin: 04/14/17 09:00 Dose: 1 mg Magnesium Chloride (Slow-Mag) 1 ect PO DAILY MIKE Stop: 06/07/17 08:59 Last Admin: 04/14/17 12:16 Dose: Not Given Magnesium Hydroxide (Milk Of Magnesia) 30 ml PO DAILY PRN PRN Reason: Constipation Stop: 06/01/17 17:21 Last Admin: 04/13/17 08:38 Dose: 30 ml Multivitamins/Vitamin C (Theragran) 1 tab PO DAILY MIKE Stop: 06/03/17 08:59 Last Admin: 04/14/17 09:00 Dose: 1 tab Quetiapine Fumarate (Seroquel) 50 mg PO BID MIKE PRN Reason: Protocol Stop: 06/04/17 08:59 Last Admin: 04/14/17 12:16 Dose: Not Given Thiamine HCl (Vitamin B1) 100 mg PO DAILY MIKE Stop: 06/03/17 08:59 Last Admin: 04/14/17 09:01 Dose: 100 mg Zolpidem Tartrate (Ambien) 5 mg PO HS PRN PRN Reason: Insomnia Stop: 06/01/17 17:21 Last Admin: 04/11/17 20:38 Dose: 5 mg General: lethargic, demented HEENT: NC/AT, PERRLA, thinning hair, poor dentition Neck: Supple, No thyromegaly Lungs: CTAB Cardiovascular: RRR, Normal S1, Normal S2, without murmur Abdomen: soft, non-tender, globular, positive bowel sound Extremities: excoriation Internal Medicine Assmt/Plan - Assessment Assessment: AGITATION PSYCHOSIS ALTERED MENTAL STATUS DEMENTIA DYSLIPIDEMIA ALS - Plan Plan: snf (locked psych) placement as requested by continue with nutritional support symptomatic care and tx continue present management Nutritional Asmnt/Malnutr-PDOC - Dietary Evaluation Malnutrition Findings (Please click <Entered> for more info): Nutritional Asmnt/Malnutrition Start: 04/10/17 18: 21 Text: Status: Complete Freq: Document 04/10/17 18:21 GSUN (Rec: 04/10/17 18:43 GSUN [email or web address]) Nutritional Asmnt/Malnutrition Patient General Information Nutritional Screening Diagnosis Diagnosis Unspecified psychosis Pertinent Medical Hx/Surgical Hx Dyslipidemia, dementia, appendectomy Subjective Information 66 year old male. Pt is a poor historian. Avg PO intake is sporadic, 0% all three meals today, 100% all three meals on 04/08. Visited pt during meal time, observed NOODLE CATALYST MAKER providing total assist, pt's head tilted to one side. NOODLE CATALYST MAKER stated pt will state if he wants to eat or not, pt might have difficulty swallowing due to head tilted with one side, however no coughing noted. CBW 184lb via bedscale, no severe muscle/fat wasting noted. Current Diet Order/ Nutrition Support Regular, Boost TID Pertinent Medications Lipitor, Slow-Ying, MOM, Theragran, Seroquel, Vitamin B1 Pertinent Labs Reviewed. Nutritional Hx/Data Height 6 ft 1 in Height (Calculated Centimeters) 185.4 Current Weight (lbs) 184 lb Weight (Calculated Kilograms) 83.5 Weight (Calculated Grams) 15008.0 [place] Body Weight 184 Weight Status Approriate GI Symptoms Food Allergies No Skin Integrity/Comment: Cory 16. Skin intact. Estimated Nutritional Goals BEE in Kcals: Using Current wt Calories/Kcals/Kg CBW 184lb/83.6kg Kcals Calculated 2090-2508kcal (25-30kcal/kg) Protein: Using Current wt Protein Calculated 84g (1g/kg) Fluid: ml 2090-2508ml (1ml/kcal) Nutritional Problem 1. Problem Problem Iandequate oral food beverage intake related to Etiology likely cognition aeb Signs/Symptoms: meal intake ranges 0-100%, avg is not meeting nutritinoal needs Intervention/Recommendation Comments 1. Continue with current diet order. Pt's meal intake is sporadic, ranging 0% on days and 100% on other days. Avg PO intake is inadequate. Nursing staff to encourage meals and provide total assistance. 2. Monitor tolerance to meals. Per MARY ANN Jones report, pt's head is tilted to one side and may be at risk of difficulty swallowing. Expected Outcomes/Goals Expected Outcomes/Goals 1. PO intake to meet at least 75% of estimated nutritinoal needs.
[2017-04-15] MEDS: Magnesium Chloride EC 64mg Tab PO SCH (08:42)
[2017-04-15] MEDS: Multivitamin Tab PO SCH (08:42)
[2017-04-15] MEDS: Atorvastatin Calcium 10 MG TAB PO SCH (08:42)
--- NOTE | 2017-04-15 12:35 | Internal Medicine Prog Note ---
Internal Medicine Subjective - Subjective Service Date: 04/15/17 Patient is:: awake, in bed Per staff patient has:: no adverse event, no episodes of fall, poor appetite, noncompliant, tolerating meds Internal Medicine Objective - Results Result Diagrams: 04/02/17 15:05 04/02/17 15:05 Recent Labs: Laboratory Last Values WBC 10.7 Th/cmm (4.8-10.8) 04/02/17 15:05 RBC 4.28 Mil/cmm (4.30-5.70) L 04/02/17 15:05 Hgb 14.1 gm/dL (12-16) 04/02/17 15:05 Hct 40.3 % (41.0-60) L 04/02/17 15:05 MCV 94.0 fl (80-99) 04/02/17 15:05 MCH 33.0 pg (26.0-30.0) H 04/02/17 15:05 MCHC Differential 35.1 pg (28.0-36.0) 04/02/17 15:05 RDW 13.1 % (11.5-20.0) 04/02/17 15:05 Plt Count 144 Th/cmm (150-400) L 04/02/17 15:05 MPV 7.6 fl 04/02/17 15:05 Neutrophils % 57.2 % (40.0-80.0) 04/02/17 15:05 Lymphocytes % 33.2 % (20.0-50.0) 04/02/17 15:05 Monocytes % 6.3 % (2.0-10.0) 04/02/17 15:05 Eosinophils % 2.2 % (0.0-5.0) 04/02/17 15:05 Basophils % 1.1 % (0.0-2.0) 04/02/17 15:05 Sodium 135 mEq/L (136-145) L 04/02/17 15:05 Potassium 3.7 mEq/L (3.5-5.1) 04/02/17 15:05 Chloride 102 mEq/L (98-107) 04/02/17 15:05 Carbon Dioxide 28.3 mEq/L (21.0-31.0) 04/02/17 15:05 Anion Gap 8.4 (7.0-16.0) 04/02/17 15:05 BUN 13 mg/dL (7-25) 04/02/17 15:05 Creatinine 0.9 mg/dL (0.7-1.3) 04/02/17 15:05 Est GFR ( Amer) > 60.0 ml/min (>90) 04/02/17 15:05 Est GFR (Non-Af Amer) > 60.0 ml/min 04/02/17 15:05 BUN/Creatinine Ratio 14.4 04/02/17 15:05 Glucose 84 mg/dL (70-105) 04/02/17 15:05 Calcium 9.3 mg/dL (8.6-10.3) 04/02/17 15:05 Total Bilirubin 0.4 mg/dL (0.3-1.0) 04/02/17 15:05 AST 49 U/L (13-39) H 04/02/17 15:05 ALT 70 U/L (7-52) H 04/02/17 15:05 Alkaline Phosphatase 63 U/L (34-104) 04/02/17 15:05 Total Protein 7.0 gm/dL (6.0-8.3) 04/02/17 15:05 Albumin 4.5 gm/dL (4.2-5.5) 04/02/17 15:05 Globulin 2.5 gm/dL 04/02/17 15:05 Albumin/Globulin Ratio 1.8 (1.0-1.8) 04/02/17 15:05 - Physical Exam Vitals and I&O: Vital Signs Temp 97 F 04/15/17 06:31 Pulse 84 04/15/17 06:31 Resp 17 04/15/17 06:31 BP 136/68 04/15/17 06:31 Pulse Ox 98 04/15/17 06:31 Intake & Output 04/14/17 04/15/17 04/15/17 18:59 06:59 18:59 Intake Total 1600 360 Balance 1600 360 Intake: Oral 1600 360 Other: # Voids 4 1 # Bowel Movements 1 Stool Characteristics Soft Formed Active Medications: Current Medications Acetaminophen (Tylenol) 650 mg PO Q4H PRN PRN Reason: Mild Pain/Headache/T above 101 Stop: 06/01/17 17:21 Last Admin: 04/13/17 10:07 Dose: 650 mg Al Hydrox/Mg Hydrox/Simethicone (Maalox) 30 ml PO Q6H PRN PRN Reason: Dyspepsia Stop: 06/01/17 17:21 Atorvastatin Calcium (Lipitor) 10 mg PO DAILY MIKE PRN Reason: Protocol Stop: 06/03/17 08:59 Last Admin: 04/15/17 08:42 Dose: 10 mg Lorazepam (Ativan) 0.5 mg PO Q4HR PRN; Protocol PRN Reason: Agitation Stop: 06/01/17 17:21 Last Admin: 04/04/17 16:21 Dose: 0.5 mg Lorazepam (Ativan) 1 mg PO TID MIKE PRN Reason: Protocol Stop: 06/06/17 13:59 Last Admin: 04/15/17 08:42 Dose: 1 mg Magnesium Chloride (Slow-Mag) 1 ect PO DAILY MIKE Stop: 06/07/17 08:59 Last Admin: 04/15/17 08:42 Dose: 1 ect Magnesium Hydroxide (Milk Of Magnesia) 30 ml PO DAILY PRN PRN Reason: Constipation Stop: 06/01/17 17:21 Last Admin: 04/13/17 08:38 Dose: 30 ml Multivitamins/Vitamin C (Theragran) 1 tab PO DAILY MIKE Stop: 06/03/17 08:59 Last Admin: 04/15/17 08:42 Dose: 1 tab Quetiapine Fumarate (Seroquel) 50 mg PO BID MIKE PRN Reason: Protocol Stop: 06/04/17 08:59 Last Admin: 04/15/17 08:42 Dose: 50 mg Thiamine HCl (Vitamin B1) 100 mg PO DAILY MIKE Stop: 06/03/17 08:59 Last Admin: 04/15/17 08:42 Dose: 100 mg Zolpidem Tartrate (Ambien) 5 mg PO HS PRN PRN Reason: Insomnia Stop: 06/01/17 17:21 Last Admin: 04/11/17 20:38 Dose: 5 mg General: lethargic, demented HEENT: NC/AT, PERRLA, thinning hair, poor dentition Neck: Supple, No thyromegaly Lungs: CTAB Cardiovascular: RRR, Normal S1, Normal S2, without murmur Abdomen: soft, non-tender, globular, positive bowel sound Extremities: excoriation Internal Medicine Assmt/Plan - Assessment Assessment: AGITATION PSYCHOSIS ALTERED MENTAL STATUS DEMENTIA DYSLIPIDEMIA ALS - Plan Plan: snf (locked psych) placement as requested by continue with nutritional support symptomatic care and tx continue present management Nutritional Asmnt/Malnutr-PDOC - Dietary Evaluation Malnutrition Findings (Please click <Entered> for more info): Nutritional Asmnt/Malnutrition Start: 04/10/17 18: 21 Text: Status: Complete Freq: Document 04/10/17 18:21 GSUN (Rec: 04/10/17 18:43 GSUN [email or web address]) Nutritional Asmnt/Malnutrition Patient General Information Nutritional Screening Diagnosis Diagnosis Unspecified psychosis Pertinent Medical Hx/Surgical Hx Dyslipidemia, dementia, appendectomy Subjective Information 66 year old male. Pt is a poor historian. Avg PO intake is sporadic, 0% all three meals today, 100% all three meals on 04/08. Visited pt during meal time, observed AUDIOVISUAL TECH providing total assist, pt's head tilted to one side. AUDIOVISUAL TECH stated pt will state if he wants to eat or not, pt might have difficulty swallowing due to head tilted with one side, however no coughing noted. CBW 184lb via bedscale, no severe muscle/fat wasting noted. Current Diet Order/ Nutrition Support Regular, Boost TID Pertinent Medications Lipitor, Slow-Ying, MOM, Theragran, Seroquel, Vitamin B1 Pertinent Labs Reviewed. Nutritional Hx/Data Height 6 ft 1 in Height (Calculated Centimeters) 185.4 Current Weight (lbs) 184 lb Weight (Calculated Kilograms) 83.5 Weight (Calculated Grams) 72264.0 [place] Body Weight 184 Weight Status Approriate GI Symptoms Food Allergies No Skin Integrity/Comment: Cory 16. Skin intact. Estimated Nutritional Goals BEE in Kcals: Using Current wt Calories/Kcals/Kg CBW 184lb/83.6kg Kcals Calculated 0-2508kcal (25-30kcal/kg) Protein: Using Current wt Protein Calculated 84g (1g/kg) Fluid: ml 0-2508ml (1ml/kcal) Nutritional Problem 1. Problem Problem Iandequate oral food beverage intake related to Etiology likely cognition aeb Signs/Symptoms: meal intake ranges 0-100%, avg is not meeting nutritinoal needs Intervention/Recommendation Comments 1. Continue with current diet order. Pt's meal intake is sporadic, ranging 0% on days and 100% on other days. Avg PO intake is inadequate. Nursing staff to encourage meals and provide total assistance. 2. Monitor tolerance to meals. Per MARY ANN Jones report, pt's head is tilted to one side and may be at risk of difficulty swallowing. Expected Outcomes/Goals Expected Outcomes/Goals 1. PO intake to meet at least 75% of estimated nutritinoal needs.
--- NOTE | 2017-04-15 21:05 | Progress Notes ---
DATE: 04/15/2017 SUBJECTIVE: Chart reviewed and the patient interviewed. Also discussed the patient's condition with the staff and reviewed records and labs. The patient is disheveled and he took off his hospital gown. The patient also is unable to answer any of my questions coherently. The patient also is easily agitated and he is confused. Also unable to provide any safe plan for self-care. TREATMENT PLAN: The patient's wanted the patient to be in hospice care. We will ask for hospice care evaluation. Also, we will continue to work on adjusting his psychotropic medications. The patient is taking Ativan in a dose of 1 mg 3 times a day to help with possible withdrawal of alcohol and he also is taking Seroquel in a dose of 50 mg twice a day, as well as thiamine. We will continue same dose and continue to work on possible detox and also discharge plans and placement issue. JOB# [id number]
[2017-04-16] MEDS: Atorvastatin Calcium 10 MG TAB PO SCH (08:21)
[2017-04-16] MEDS: Multivitamin Tab PO SCH (08:21)
[2017-04-16] MEDS: Magnesium Chloride EC 64mg Tab PO SCH (08:25)
--- NOTE | 2017-04-16 12:47 | Progress Notes ---
DATE: SUBJECTIVE: Chart reviewed and the patient interviewed. Also discussed the patient's condition with the staff and reviewed records and labs. The patient continued to be confused and is still forgetful and unable to carry on coherent conversation. The patient also is disheveled and personal hygiene is still poor. He also is still paranoid, and he still needs lot of assistance with his ADLs. Otherwise, the patient is compliant with taking his medications with no side effects of medications. ASSESSMENT: The patient is still confused and considered to be gravely disabled. TREATMENT PLAN: The patient was evaluated yesterday by [facility], but the patient was not qualified according to the report and they did not accept him. The patient will be interviewed by another hospice later today. He still needs lots of close monitoring and lots of redirections and considered to be gravely disabled. At the same time, we will continue to work on his medications and we will continue to follow up. JOB# [id number]
--- NOTE | 2017-04-16 13:18 | Internal Medicine Prog Note ---
Internal Medicine Subjective - Subjective Patient seen and examined:: with staff, chart reviewed Patient is:: awake, in bed Per staff patient has:: no adverse event, no episodes of fall, poor appetite, noncompliant, tolerating meds Internal Medicine Objective - Results Result Diagrams: 04/02/17 15:05 04/02/17 15:05 Recent Labs: Laboratory Last Values WBC 10.7 Th/cmm (4.8-10.8) 04/02/17 15:05 RBC 4.28 Mil/cmm (4.30-5.70) L 04/02/17 15:05 Hgb 14.1 gm/dL (12-16) 04/02/17 15:05 Hct 40.3 % (41.0-60) L 04/02/17 15:05 MCV 94.0 fl (80-99) 04/02/17 15:05 MCH 33.0 pg (26.0-30.0) H 04/02/17 15:05 MCHC Differential 35.1 pg (28.0-36.0) 04/02/17 15:05 RDW 13.1 % (11.5-20.0) 04/02/17 15:05 Plt Count 144 Th/cmm (150-400) L 04/02/17 15:05 MPV 7.6 fl 04/02/17 15:05 Neutrophils % 57.2 % (40.0-80.0) 04/02/17 15:05 Lymphocytes % 33.2 % (20.0-50.0) 04/02/17 15:05 Monocytes % 6.3 % (2.0-10.0) 04/02/17 15:05 Eosinophils % 2.2 % (0.0-5.0) 04/02/17 15:05 Basophils % 1.1 % (0.0-2.0) 04/02/17 15:05 Sodium 135 mEq/L (136-145) L 04/02/17 15:05 Potassium 3.7 mEq/L (3.5-5.1) 04/02/17 15:05 Chloride 102 mEq/L (98-107) 04/02/17 15:05 Carbon Dioxide 28.3 mEq/L (21.0-31.0) 04/02/17 15:05 Anion Gap 8.4 (7.0-16.0) 04/02/17 15:05 BUN 13 mg/dL (7-25) 04/02/17 15:05 Creatinine 0.9 mg/dL (0.7-1.3) 04/02/17 15:05 Est GFR ( Amer) > 60.0 ml/min (>90) 04/02/17 15:05 Est GFR (Non-Af Amer) > 60.0 ml/min 04/02/17 15:05 BUN/Creatinine Ratio 14.4 04/02/17 15:05 Glucose 84 mg/dL (70-105) 04/02/17 15:05 Calcium 9.3 mg/dL (8.6-10.3) 04/02/17 15:05 Total Bilirubin 0.4 mg/dL (0.3-1.0) 04/02/17 15:05 AST 49 U/L (13-39) H 04/02/17 15:05 ALT 70 U/L (7-52) H 04/02/17 15:05 Alkaline Phosphatase 63 U/L (34-104) 04/02/17 15:05 Total Protein 7.0 gm/dL (6.0-8.3) 04/02/17 15:05 Albumin 4.5 gm/dL (4.2-5.5) 04/02/17 15:05 Globulin 2.5 gm/dL 04/02/17 15:05 Albumin/Globulin Ratio 1.8 (1.0-1.8) 04/02/17 15:05 - Physical Exam Vitals and I&O: Vital Signs Temp 97.9 F 04/16/17 05:46 Pulse 79 04/16/17 11:09 Resp 20 04/16/17 11:09 BP 140/83 04/16/17 05:46 Pulse Ox 94 04/16/17 05:46 Intake & Output 04/15/17 04/16/17 04/16/17 18:59 06:59 18:59 Intake Total 120 Balance 120 Intake: Oral 120 Other: # Voids 3 # Bowel Movements 0 Stool Characteristics Soft Formed Active Medications: Current Medications Acetaminophen (Tylenol) 650 mg PO Q4H PRN PRN Reason: Mild Pain/Headache/T above 101 Stop: 06/01/17 17:21 Last Admin: 04/13/17 10:07 Dose: 650 mg Al Hydrox/Mg Hydrox/Simethicone (Maalox) 30 ml PO Q6H PRN PRN Reason: Dyspepsia Stop: 06/01/17 17:21 Atorvastatin Calcium (Lipitor) 10 mg PO DAILY MIKE PRN Reason: Protocol Stop: 06/03/17 08:59 Last Admin: 04/16/17 08:21 Dose: 10 mg Lorazepam (Ativan) 0.5 mg PO Q4HR PRN; Protocol PRN Reason: Agitation Stop: 06/01/17 17:21 Last Admin: 04/04/17 16:21 Dose: 0.5 mg Lorazepam (Ativan) 1 mg PO TID MIKE PRN Reason: Protocol Stop: 06/06/17 13:59 Last Admin: 04/16/17 08:21 Dose: 1 mg Magnesium Chloride (Slow-Mag) 1 ect PO DAILY MIKE Stop: 06/07/17 08:59 Last Admin: 04/16/17 08:25 Dose: 1 ect Magnesium Hydroxide (Milk Of Magnesia) 30 ml PO DAILY PRN PRN Reason: Constipation Stop: 06/01/17 17:21 Last Admin: 04/13/17 08:38 Dose: 30 ml Multivitamins/Vitamin C (Theragran) 1 tab PO DAILY MIKE Stop: 06/03/17 08:59 Last Admin: 04/16/17 08:21 Dose: 1 tab Quetiapine Fumarate (Seroquel) 50 mg PO BID MIKE PRN Reason: Protocol Stop: 06/04/17 08:59 Last Admin: 04/16/17 08:21 Dose: 50 mg Thiamine HCl (Vitamin B1) 100 mg PO DAILY MIKE Stop: 06/03/17 08:59 Last Admin: 04/16/17 08:21 Dose: 100 mg Zolpidem Tartrate (Ambien) 5 mg PO HS PRN PRN Reason: Insomnia Stop: 06/01/17 17:21 Last Admin: 04/15/17 20:50 Dose: 5 mg General: lethargic, demented HEENT: NC/AT, PERRLA, thinning hair, poor dentition Neck: Supple, No thyromegaly Lungs: CTAB Cardiovascular: RRR, Normal S1, Normal S2, without murmur Abdomen: soft, non-tender, globular, positive bowel sound Extremities: excoriation Internal Medicine Assmt/Plan - Assessment Assessment: AGITATION PSYCHOSIS ALTERED MENTAL STATUS DEMENTIA DYSLIPIDEMIA - Plan Plan: cont w nutritional support will rview labs symptomatic care and tx dw rn Nutritional Asmnt/Malnutr-PDOC - Dietary Evaluation Malnutrition Findings (Please click <Entered> for more info): Nutritional Asmnt/Malnutrition Start: 04/10/17 18: 21 Text: Status: Complete Freq: Document 04/10/17 18:21 GSUN (Rec: 04/10/17 18:43 GSUN [email or web address]) Nutritional Asmnt/Malnutrition Patient General Information Nutritional Screening Diagnosis Diagnosis Unspecified psychosis Pertinent Medical Hx/Surgical Hx Dyslipidemia, dementia, appendectomy Subjective Information 66 year old male. Pt is a poor historian. Avg PO intake is sporadic, 0% all three meals today, 100% all three meals on 04/08. Visited pt during meal time, observed PROMOTIONAL MARKETING AGENT providing total assist, pt's head tilted to one side. PROMOTIONAL MARKETING AGENT stated pt will state if he wants to eat or not, pt might have difficulty swallowing due to head tilted with one side, however no coughing noted. CBW 184lb via bedscale, no severe muscle/fat wasting noted. Current Diet Order/ Nutrition Support Regular, Boost TID Pertinent Medications Lipitor, Slow-Ying, MOM, Theragran, Seroquel, Vitamin B1 Pertinent Labs Reviewed. Nutritional Hx/Data Height 1.85 m Height (Calculated Centimeters) 185.4 Current Weight (lbs) 83.461 kg Weight (Calculated Kilograms) 83.5 Weight (Calculated Grams) 13717.0 [place] Body Weight 184 Weight Status Approriate GI Symptoms Food Allergies No Skin Integrity/Comment: Cory 16. Skin intact. Estimated Nutritional Goals BEE in Kcals: Using Current wt Calories/Kcals/Kg CBW 184lb/83.6kg Kcals Calculated 0-2508kcal (25-30kcal/kg) Protein: Using Current wt Protein Calculated 84g (1g/kg) Fluid: ml 0-2508ml (1ml/kcal) Nutritional Problem 1. Problem Problem Iandequate oral food beverage intake related to Etiology likely cognition aeb Signs/Symptoms: meal intake ranges 0-100%, avg is not meeting nutritinoal needs Intervention/Recommendation Comments 1. Continue with current diet order. Pt's meal intake is sporadic, ranging 0% on days and 100% on other days. Avg PO intake is inadequate. Nursing staff to encourage meals and provide total assistance. 2. Monitor tolerance to meals. Per MARY ANN Jones report, pt's head is tilted to one side and may be at risk of difficulty swallowing. Expected Outcomes/Goals Expected Outcomes/Goals 1. PO intake to meet at least 75% of estimated nutritinoal needs.
[2017-04-17] MEDS: Magnesium Chloride EC 64mg Tab PO SCH (08:37)
[2017-04-17] MEDS: Multivitamin Tab PO SCH (08:37)
[2017-04-17] MEDS: Atorvastatin Calcium 10 MG TAB PO SCH (08:38)
--- NOTE | 2017-04-17 13:55 | Internal Medicine Prog Note ---
Internal Medicine Subjective - Subjective Service Date: 04/17/17 Patient is:: awake, in bed Per staff patient has:: no adverse event, no episodes of fall, poor appetite, noncompliant, tolerating meds Internal Medicine Objective - Results Result Diagrams: 04/02/17 15:05 04/02/17 15:05 Recent Labs: Laboratory Last Values WBC 10.7 Th/cmm (4.8-10.8) 04/02/17 15:05 RBC 4.28 Mil/cmm (4.30-5.70) L 04/02/17 15:05 Hgb 14.1 gm/dL (12-16) 04/02/17 15:05 Hct 40.3 % (41.0-60) L 04/02/17 15:05 MCV 94.0 fl (80-99) 04/02/17 15:05 MCH 33.0 pg (26.0-30.0) H 04/02/17 15:05 MCHC Differential 35.1 pg (28.0-36.0) 04/02/17 15:05 RDW 13.1 % (11.5-20.0) 04/02/17 15:05 Plt Count 144 Th/cmm (150-400) L 04/02/17 15:05 MPV 7.6 fl 04/02/17 15:05 Neutrophils % 57.2 % (40.0-80.0) 04/02/17 15:05 Lymphocytes % 33.2 % (20.0-50.0) 04/02/17 15:05 Monocytes % 6.3 % (2.0-10.0) 04/02/17 15:05 Eosinophils % 2.2 % (0.0-5.0) 04/02/17 15:05 Basophils % 1.1 % (0.0-2.0) 04/02/17 15:05 Sodium 135 mEq/L (136-145) L 04/02/17 15:05 Potassium 3.7 mEq/L (3.5-5.1) 04/02/17 15:05 Chloride 102 mEq/L (98-107) 04/02/17 15:05 Carbon Dioxide 28.3 mEq/L (21.0-31.0) 04/02/17 15:05 Anion Gap 8.4 (7.0-16.0) 04/02/17 15:05 BUN 13 mg/dL (7-25) 04/02/17 15:05 Creatinine 0.9 mg/dL (0.7-1.3) 04/02/17 15:05 Est GFR ( Amer) > 60.0 ml/min (>90) 04/02/17 15:05 Est GFR (Non-Af Amer) > 60.0 ml/min 04/02/17 15:05 BUN/Creatinine Ratio 14.4 04/02/17 15:05 Glucose 84 mg/dL (70-105) 04/02/17 15:05 Calcium 9.3 mg/dL (8.6-10.3) 04/02/17 15:05 Total Bilirubin 0.4 mg/dL (0.3-1.0) 04/02/17 15:05 AST 49 U/L (13-39) H 04/02/17 15:05 ALT 70 U/L (7-52) H 04/02/17 15:05 Alkaline Phosphatase 63 U/L (34-104) 04/02/17 15:05 Total Protein 7.0 gm/dL (6.0-8.3) 04/02/17 15:05 Albumin 4.5 gm/dL (4.2-5.5) 04/02/17 15:05 Globulin 2.5 gm/dL 04/02/17 15:05 Albumin/Globulin Ratio 1.8 (1.0-1.8) 04/02/17 15:05 - Physical Exam Vitals and I&O: Vital Signs Temp 97.9 F 04/17/17 06:35 Pulse 84 04/17/17 09:58 Resp 20 04/17/17 09:58 BP 133/70 04/17/17 06:35 Pulse Ox 98 04/17/17 06:35 Intake & Output 04/16/17 04/17/17 04/17/17 18:59 06:59 18:59 Intake Total 700 120 Balance 700 120 Intake: Oral 700 120 Other: # Voids 3 3 # Bowel Movements 0 Stool Characteristics Soft Formed Active Medications: Current Medications Acetaminophen (Tylenol) 650 mg PO Q4H PRN PRN Reason: Mild Pain/Headache/T above 101 Stop: 06/01/17 17:21 Last Admin: 04/13/17 10:07 Dose: 650 mg Al Hydrox/Mg Hydrox/Simethicone (Maalox) 30 ml PO Q6H PRN PRN Reason: Dyspepsia Stop: 06/01/17 17:21 Atorvastatin Calcium (Lipitor) 10 mg PO DAILY MIKE PRN Reason: Protocol Stop: 06/03/17 08:59 Last Admin: 04/17/17 08:38 Dose: 10 mg Lorazepam (Ativan) 0.5 mg PO Q4HR PRN; Protocol PRN Reason: Agitation Stop: 06/01/17 17:21 Last Admin: 04/04/17 16:21 Dose: 0.5 mg Lorazepam (Ativan) 1 mg PO TID MIKE PRN Reason: Protocol Stop: 06/06/17 13:59 Last Admin: 04/17/17 08:37 Dose: 1 mg Magnesium Chloride (Slow-Mag) 1 ect PO DAILY MIKE Stop: 06/07/17 08:59 Last Admin: 04/17/17 08:37 Dose: 1 ect Magnesium Hydroxide (Milk Of Magnesia) 30 ml PO DAILY PRN PRN Reason: Constipation Stop: 06/01/17 17:21 Last Admin: 04/13/17 08:38 Dose: 30 ml Multivitamins/Vitamin C (Theragran) 1 tab PO DAILY MIKE Stop: 06/03/17 08:59 Last Admin: 04/17/17 08:37 Dose: 1 tab Quetiapine Fumarate (Seroquel) 50 mg PO BID MIKE PRN Reason: Protocol Stop: 06/04/17 08:59 Last Admin: 04/17/17 08:37 Dose: 50 mg Thiamine HCl (Vitamin B1) 100 mg PO DAILY MIKE Stop: 06/03/17 08:59 Last Admin: 04/17/17 08:37 Dose: 100 mg Zolpidem Tartrate (Ambien) 5 mg PO HS PRN PRN Reason: Insomnia Stop: 06/01/17 17:21 Last Admin: 04/16/17 20:49 Dose: 5 mg General: lethargic, demented HEENT: NC/AT, PERRLA, thinning hair, poor dentition Neck: Supple, No thyromegaly Lungs: CTAB Cardiovascular: RRR, Normal S1, Normal S2, without murmur Abdomen: soft, non-tender, globular, positive bowel sound Extremities: excoriation Internal Medicine Assmt/Plan - Assessment Assessment: AGITATION PSYCHOSIS ALTERED MENTAL STATUS DEMENTIA DYSLIPIDEMIA ALS - Plan Plan: snf (locked psych) placement as requested by continue with nutritional support symptomatic care and tx continue present management Nutritional Asmnt/Malnutr-PDOC - Dietary Evaluation Malnutrition Findings (Please click <Entered> for more info): Nutritional Asmnt/Malnutrition Start: 04/10/17 18: 21 Text: Status: Complete Freq: Document 04/10/17 18:21 GSUN (Rec: 04/10/17 18:43 GSUN [email or web address]) Nutritional Asmnt/Malnutrition Patient General Information Nutritional Screening Diagnosis Diagnosis Unspecified psychosis Pertinent Medical Hx/Surgical Hx Dyslipidemia, dementia, appendectomy Subjective Information 66 year old male. Pt is a poor historian. Avg PO intake is sporadic, 0% all three meals today, 100% all three meals on 04/08. Visited pt during meal time, observed PHOTO MANAGER providing total assist, pt's head tilted to one side. PHOTO MANAGER stated pt will state if he wants to eat or not, pt might have difficulty swallowing due to head tilted with one side, however no coughing noted. CBW 184lb via bedscale, no severe muscle/fat wasting noted. Current Diet Order/ Nutrition Support Regular, Boost TID Pertinent Medications Lipitor, Slow-Ying, MOM, Theragran, Seroquel, Vitamin B1 Pertinent Labs Reviewed. Nutritional Hx/Data Height 6 ft 1 in Height (Calculated Centimeters) 185.4 Current Weight (lbs) 184 lb Weight (Calculated Kilograms) 83.5 Weight (Calculated Grams) 64624.0 [place] Body Weight 184 Weight Status Approriate GI Symptoms Food Allergies No Skin Integrity/Comment: Cory 16. Skin intact. Estimated Nutritional Goals BEE in Kcals: Using Current wt Calories/Kcals/Kg CBW 184lb/83.6kg Kcals Calculated 2090-2508kcal (25-30kcal/kg) Protein: Using Current wt Protein Calculated 84g (1g/kg) Fluid: ml 2090-2508ml (1ml/kcal) Nutritional Problem 1. Problem Problem Iandequate oral food beverage intake related to Etiology likely cognition aeb Signs/Symptoms: meal intake ranges 0-100%, avg is not meeting nutritinoal needs Intervention/Recommendation Comments 1. Continue with current diet order. Pt's meal intake is sporadic, ranging 0% on days and 100% on other days. Avg PO intake is inadequate. Nursing staff to encourage meals and provide total assistance. 2. Monitor tolerance to meals. Per MARY ANN Jones report, pt's head is tilted to one side and may be at risk of difficulty swallowing. Expected Outcomes/Goals Expected Outcomes/Goals 1. PO intake to meet at least 75% of estimated nutritinoal needs.
--- NOTE | 2017-04-17 23:30 | Progress Notes ---
DATE: 04/17/2017 SUBJECTIVE: Chart reviewed and the patient interviewed. Also, discussed the patient's condition with the staff and reviewed records and labs. The patient continued to be confused and he is still easily agitated and easily irritable. The patient also still wants to be left alone and he is still unable to carry on any coherent conversation. The patient also stays by himself in his room most of the time and has difficulty socializing or getting out of his room. The patient's still thinks that the patient can go under hospice care in spite of the staff explained to her that he is not a candidate for hospice care and that they refused to take him for hospice treatment. At the same time, I advised her to go to different facilities that the patient can be treated there and continue his medical as well as psychiatric treatment. ASSESSMENT: The patient is still psychotic and considered to be gravely disabled. TREATMENT PLAN: We will continue monitoring his behavior and his condition closely and continue to work on his ineffective coping and his psychosis as well as his drinking problem. JOB# [id number]
[2017-04-18] MEDS: Multivitamin Tab PO SCH (09:32)
[2017-04-18] MEDS: Atorvastatin Calcium 10 MG TAB PO SCH (09:32)
[2017-04-18] MEDS: Magnesium Chloride EC 64mg Tab PO SCH (09:32)
--- NOTE | 2017-04-18 19:48 | Internal Medicine Prog Note ---
Internal Medicine Subjective - Subjective Service Date: 04/18/17 Patient is:: awake, in bed Per staff patient has:: no adverse event, no episodes of fall, poor appetite, noncompliant, tolerating meds Internal Medicine Objective - Results Result Diagrams: 04/02/17 15:05 04/02/17 15:05 Recent Labs: Laboratory Last Values WBC 10.7 Th/cmm (4.8-10.8) 04/02/17 15:05 RBC 4.28 Mil/cmm (4.30-5.70) L 04/02/17 15:05 Hgb 14.1 gm/dL (12-16) 04/02/17 15:05 Hct 40.3 % (41.0-60) L 04/02/17 15:05 MCV 94.0 fl (80-99) 04/02/17 15:05 MCH 33.0 pg (26.0-30.0) H 04/02/17 15:05 MCHC Differential 35.1 pg (28.0-36.0) 04/02/17 15:05 RDW 13.1 % (11.5-20.0) 04/02/17 15:05 Plt Count 144 Th/cmm (150-400) L 04/02/17 15:05 MPV 7.6 fl 04/02/17 15:05 Neutrophils % 57.2 % (40.0-80.0) 04/02/17 15:05 Lymphocytes % 33.2 % (20.0-50.0) 04/02/17 15:05 Monocytes % 6.3 % (2.0-10.0) 04/02/17 15:05 Eosinophils % 2.2 % (0.0-5.0) 04/02/17 15:05 Basophils % 1.1 % (0.0-2.0) 04/02/17 15:05 Sodium 135 mEq/L (136-145) L 04/02/17 15:05 Potassium 3.7 mEq/L (3.5-5.1) 04/02/17 15:05 Chloride 102 mEq/L (98-107) 04/02/17 15:05 Carbon Dioxide 28.3 mEq/L (21.0-31.0) 04/02/17 15:05 Anion Gap 8.4 (7.0-16.0) 04/02/17 15:05 BUN 13 mg/dL (7-25) 04/02/17 15:05 Creatinine 0.9 mg/dL (0.7-1.3) 04/02/17 15:05 Est GFR ( Amer) > 60.0 ml/min (>90) 04/02/17 15:05 Est GFR (Non-Af Amer) > 60.0 ml/min 04/02/17 15:05 BUN/Creatinine Ratio 14.4 04/02/17 15:05 Glucose 84 mg/dL (70-105) 04/02/17 15:05 POC Glucose 168 MG/DL (70 - 105) H 04/17/17 19:54 Calcium 9.3 mg/dL (8.6-10.3) 04/02/17 15:05 Total Bilirubin 0.4 mg/dL (0.3-1.0) 04/02/17 15:05 AST 49 U/L (13-39) H 04/02/17 15:05 ALT 70 U/L (7-52) H 04/02/17 15:05 Alkaline Phosphatase 63 U/L (34-104) 04/02/17 15:05 Total Protein 7.0 gm/dL (6.0-8.3) 04/02/17 15:05 Albumin 4.5 gm/dL (4.2-5.5) 04/02/17 15:05 Globulin 2.5 gm/dL 04/02/17 15:05 Albumin/Globulin Ratio 1.8 (1.0-1.8) 04/02/17 15:05 - Physical Exam Vitals and I&O: Vital Signs Temp 97.6 F 04/18/17 16:17 Pulse 93 04/18/17 17:40 Resp 20 04/18/17 17:40 BP 123/64 04/18/17 16:17 Pulse Ox 97 04/18/17 16:17 Intake & Output 04/18/17 04/18/17 04/19/17 06:59 18:59 06:59 Intake Total 950 Balance 950 Intake: Oral 950 Other: # Voids 4 # Bowel Movements 0 Active Medications: Current Medications Acetaminophen (Tylenol) 650 mg PO Q4H PRN PRN Reason: Mild Pain/Headache/T above 101 Stop: 06/01/17 17:21 Last Admin: 04/13/17 10:07 Dose: 650 mg Al Hydrox/Mg Hydrox/Simethicone (Maalox) 30 ml PO Q6H PRN PRN Reason: Dyspepsia Stop: 06/01/17 17:21 Atorvastatin Calcium (Lipitor) 10 mg PO DAILY MIKE PRN Reason: Protocol Stop: 06/03/17 08:59 Last Admin: 04/18/17 09:32 Dose: 10 mg Lorazepam (Ativan) 0.5 mg PO Q4HR PRN; Protocol PRN Reason: Agitation Stop: 06/01/17 17:21 Last Admin: 04/04/17 16:21 Dose: 0.5 mg Lorazepam (Ativan) 0.5 mg PO TID MIKE PRN Reason: Protocol Stop: 06/06/17 13:59 Last Admin: 04/18/17 14:48 Dose: 0.5 mg Magnesium Chloride (Slow-Mag) 1 ect PO DAILY MIKE Stop: 06/07/17 08:59 Last Admin: 04/18/17 09:32 Dose: 1 ect Magnesium Hydroxide (Milk Of Magnesia) 30 ml PO DAILY PRN PRN Reason: Constipation Stop: 06/01/17 17:21 Last Admin: 04/13/17 08:38 Dose: 30 ml Multivitamins/Vitamin C (Theragran) 1 tab PO DAILY MIKE Stop: 06/03/17 08:59 Last Admin: 04/18/17 09:32 Dose: 1 tab Quetiapine Fumarate (Seroquel) 50 mg PO BID MIKE PRN Reason: Protocol Stop: 06/04/17 08:59 Last Admin: 04/18/17 16:38 Dose: 50 mg Thiamine HCl (Vitamin B1) 100 mg PO DAILY MIKE Stop: 06/03/17 08:59 Last Admin: 04/18/17 09:32 Dose: 100 mg Trazodone HCl (Desyrel) 50 mg PO HS MIKE PRN Reason: Protocol Stop: 06/17/17 20:59 General: lethargic, demented HEENT: NC/AT, PERRLA, thinning hair, poor dentition Neck: Supple, No thyromegaly Lungs: CTAB Cardiovascular: RRR, Normal S1, Normal S2, without murmur Abdomen: soft, non-tender, globular, positive bowel sound Extremities: excoriation Internal Medicine Assmt/Plan - Assessment Assessment: AGITATION PSYCHOSIS ALTERED MENTAL STATUS DEMENTIA DYSLIPIDEMIA ALS - Plan Plan: snf (locked psych) placement as requested by continue with nutritional support symptomatic care and tx continue present management Nutritional Asmnt/Malnutr-PDOC - Dietary Evaluation Malnutrition Findings (Please click <Entered> for more info): Nutritional Asmnt/Malnutrition Start: 04/10/17 18: 21 Text: Status: Complete Freq: Document 04/10/17 18:21 GSUN (Rec: 04/10/17 18:43 GSUN [email or web address]) Nutritional Asmnt/Malnutrition Patient General Information Nutritional Screening Diagnosis Diagnosis Unspecified psychosis Pertinent Medical Hx/Surgical Hx Dyslipidemia, dementia, appendectomy Subjective Information 66 year old male. Pt is a poor historian. Avg PO intake is sporadic, 0% all three meals today, 100% all three meals on 04/08. Visited pt during meal time, observed MEDICAL BILLING AND CODING SPECIALIST providing total assist, pt's head tilted to one side. MEDICAL BILLING AND CODING SPECIALIST stated pt will state if he wants to eat or not, pt might have difficulty swallowing due to head tilted with one side, however no coughing noted. CBW 184lb via bedscale, no severe muscle/fat wasting noted. Current Diet Order/ Nutrition Support Regular, Boost TID Pertinent Medications Lipitor, Slow-Ying, MOM, Theragran, Seroquel, Vitamin B1 Pertinent Labs Reviewed. Nutritional Hx/Data Height 6 ft 1 in Height (Calculated Centimeters) 185.4 Current Weight (lbs) 184 lb Weight (Calculated Kilograms) 83.5 Weight (Calculated Grams) 45685.0 [place] Body Weight 184 Weight Status Approriate GI Symptoms Food Allergies No Skin Integrity/Comment: Cory 16. Skin intact. Estimated Nutritional Goals BEE in Kcals: Using Current wt Calories/Kcals/Kg CBW 184lb/83.6kg Kcals Calculated 2090-2508kcal (25-30kcal/kg) Protein: Using Current wt Protein Calculated 84g (1g/kg) Fluid: ml 2090-2508ml (1ml/kcal) Nutritional Problem 1. Problem Problem Iandequate oral food beverage intake related to Etiology likely cognition aeb Signs/Symptoms: meal intake ranges 0-100%, avg is not meeting nutritinoal needs Intervention/Recommendation Comments 1. Continue with current diet order. Pt's meal intake is sporadic, ranging 0% on days and 100% on other days. Avg PO intake is inadequate. Nursing staff to encourage meals and provide total assistance. 2. Monitor tolerance to meals. Per MARY ANN Jones report, pt's head is tilted to one side and may be at risk of difficulty swallowing. Expected Outcomes/Goals Expected Outcomes/Goals 1. PO intake to meet at least 75% of estimated nutritinoal needs.
--- NOTE | 2017-04-19 02:27 | Progress Notes ---
DATE: SUBJECTIVE: Chart reviewed and the patient interviewed. Also, discussed the patient's condition with the staff and reviewed records and labs. The patient is still confused and disheveled. The patient also is still unable to provide any safe plan for self-care and he is still unable to express himself and his feelings. The patient is also cooperative to taking his medications, but he is still confused and forgetful and needs lots of assistance. Talked to the patient's in length in regard to treatment plan. The patient's said that and his children got together and they decided to admit him to [facility] when he is medically cleared. She added that she is willing to pay money for his comfort. At the same time, we will continue detoxification. We will also decrease the Ativan in the detox process and we will continue to monitor his condition closely. JOB# [id number]
[2017-04-19] MEDS: Magnesium Chloride EC 64mg Tab PO SCH (08:36)
[2017-04-19] MEDS: Atorvastatin Calcium 10 MG TAB PO SCH (08:36)
[2017-04-19] MEDS: Multivitamin Tab PO SCH (08:36)
--- NOTE | 2017-04-19 13:43 | Internal Medicine Prog Note ---
Internal Medicine Subjective - Subjective Patient seen and examined:: with staff, chart reviewed Patient is:: awake, in bed Per staff patient has:: no adverse event, no episodes of fall, poor appetite, noncompliant, tolerating meds Internal Medicine Objective - Results Result Diagrams: 04/02/17 15:05 04/02/17 15:05 Recent Labs: Laboratory Last Values WBC 10.7 Th/cmm (4.8-10.8) 04/02/17 15:05 RBC 4.28 Mil/cmm (4.30-5.70) L 04/02/17 15:05 Hgb 14.1 gm/dL (12-16) 04/02/17 15:05 Hct 40.3 % (41.0-60) L 04/02/17 15:05 MCV 94.0 fl (80-99) 04/02/17 15:05 MCH 33.0 pg (26.0-30.0) H 04/02/17 15:05 MCHC Differential 35.1 pg (28.0-36.0) 04/02/17 15:05 RDW 13.1 % (11.5-20.0) 04/02/17 15:05 Plt Count 144 Th/cmm (150-400) L 04/02/17 15:05 MPV 7.6 fl 04/02/17 15:05 Neutrophils % 57.2 % (40.0-80.0) 04/02/17 15:05 Lymphocytes % 33.2 % (20.0-50.0) 04/02/17 15:05 Monocytes % 6.3 % (2.0-10.0) 04/02/17 15:05 Eosinophils % 2.2 % (0.0-5.0) 04/02/17 15:05 Basophils % 1.1 % (0.0-2.0) 04/02/17 15:05 Sodium 135 mEq/L (136-145) L 04/02/17 15:05 Potassium 3.7 mEq/L (3.5-5.1) 04/02/17 15:05 Chloride 102 mEq/L (98-107) 04/02/17 15:05 Carbon Dioxide 28.3 mEq/L (21.0-31.0) 04/02/17 15:05 Anion Gap 8.4 (7.0-16.0) 04/02/17 15:05 BUN 13 mg/dL (7-25) 04/02/17 15:05 Creatinine 0.9 mg/dL (0.7-1.3) 04/02/17 15:05 Est GFR ( Amer) > 60.0 ml/min (>90) 04/02/17 15:05 Est GFR (Non-Af Amer) > 60.0 ml/min 04/02/17 15:05 BUN/Creatinine Ratio 14.4 04/02/17 15:05 Glucose 84 mg/dL (70-105) 04/02/17 15:05 POC Glucose 168 MG/DL (70 - 105) H 04/17/17 19:54 Calcium 9.3 mg/dL (8.6-10.3) 04/02/17 15:05 Total Bilirubin 0.4 mg/dL (0.3-1.0) 04/02/17 15:05 AST 49 U/L (13-39) H 04/02/17 15:05 ALT 70 U/L (7-52) H 04/02/17 15:05 Alkaline Phosphatase 63 U/L (34-104) 04/02/17 15:05 Total Protein 7.0 gm/dL (6.0-8.3) 04/02/17 15:05 Albumin 4.5 gm/dL (4.2-5.5) 04/02/17 15:05 Globulin 2.5 gm/dL 04/02/17 15:05 Albumin/Globulin Ratio 1.8 (1.0-1.8) 04/02/17 15:05 - Physical Exam Vitals and I&O: Vital Signs Temp 99.3 F 04/19/17 06:16 Pulse 72 04/19/17 12:56 Resp 18 04/19/17 12:56 BP 135/65 04/19/17 06:16 Pulse Ox 96 04/19/17 06:16 Intake & Output 04/18/17 04/19/17 04/19/17 18:59 06:59 18:59 Intake Total 950 Balance 950 Intake: Oral 950 Other: # Voids 4 # Bowel Movements 0 Stool Characteristics Soft Active Medications: Current Medications Acetaminophen (Tylenol) 650 mg PO Q4H PRN PRN Reason: Mild Pain/Headache/T above 101 Stop: 06/01/17 17:21 Last Admin: 04/13/17 10:07 Dose: 650 mg Al Hydrox/Mg Hydrox/Simethicone (Maalox) 30 ml PO Q6H PRN PRN Reason: Dyspepsia Stop: 06/01/17 17:21 Atorvastatin Calcium (Lipitor) 10 mg PO DAILY MIKE PRN Reason: Protocol Stop: 06/03/17 08:59 Last Admin: 04/19/17 08:36 Dose: 10 mg Lorazepam (Ativan) 0.5 mg PO Q4HR PRN; Protocol PRN Reason: Agitation Stop: 06/01/17 17:21 Last Admin: 04/04/17 16:21 Dose: 0.5 mg Lorazepam (Ativan) 0.5 mg PO TID MIKE PRN Reason: Protocol Stop: 06/06/17 13:59 Last Admin: 04/19/17 08:36 Dose: 0.5 mg Magnesium Chloride (Slow-Mag) 1 ect PO DAILY MIKE Stop: 06/07/17 08:59 Last Admin: 04/19/17 08:36 Dose: 1 ect Magnesium Hydroxide (Milk Of Magnesia) 30 ml PO DAILY PRN PRN Reason: Constipation Stop: 06/01/17 17:21 Last Admin: 04/13/17 08:38 Dose: 30 ml Multivitamins/Vitamin C (Theragran) 1 tab PO DAILY MIKE Stop: 06/03/17 08:59 Last Admin: 04/19/17 08:36 Dose: 1 tab Quetiapine Fumarate (Seroquel) 50 mg PO BID MIKE PRN Reason: Protocol Stop: 06/04/17 08:59 Last Admin: 04/19/17 08:36 Dose: 50 mg Thiamine HCl (Vitamin B1) 100 mg PO DAILY MIKE Stop: 06/03/17 08:59 Last Admin: 04/19/17 08:36 Dose: 100 mg Trazodone HCl (Desyrel) 50 mg PO HS MIKE PRN Reason: Protocol Stop: 06/17/17 20:59 General: lethargic, demented HEENT: NC/AT, PERRLA, thinning hair, poor dentition Neck: Supple, No thyromegaly Lungs: CTAB Cardiovascular: RRR, Normal S1, Normal S2, without murmur Abdomen: soft, non-tender, globular, positive bowel sound Extremities: excoriation Internal Medicine Assmt/Plan - Assessment Assessment: AGITATION PSYCHOSIS ALTERED MENTAL STATUS DEMENTIA DYSLIPIDEMIA - Plan Plan: cont w nutritional support will rview labs symptomatic care and tx dw rn Nutritional Asmnt/Malnutr-PDOC - Dietary Evaluation Malnutrition Findings (Please click <Entered> for more info): Nutritional Asmnt/Malnutrition Start: 04/10/17 18: 21 Text: Status: Complete Freq: Document 04/10/17 18:21 GSUN (Rec: 04/10/17 18:43 GSUN [email or web address]) Nutritional Asmnt/Malnutrition Patient General Information Nutritional Screening Diagnosis Diagnosis Unspecified psychosis Pertinent Medical Hx/Surgical Hx Dyslipidemia, dementia, appendectomy Subjective Information 66 year old male. Pt is a poor historian. Avg PO intake is sporadic, 0% all three meals today, 100% all three meals on 04/08. Visited pt during meal time, observed EQUIPMENT VALIDATION SPECIALIST providing total assist, pt's head tilted to one side. EQUIPMENT VALIDATION SPECIALIST stated pt will state if he wants to eat or not, pt might have difficulty swallowing due to head tilted with one side, however no coughing noted. CBW 184lb via bedscale, no severe muscle/fat wasting noted. Current Diet Order/ Nutrition Support Regular, Boost TID Pertinent Medications Lipitor, Slow-Ying, MOM, Theragran, Seroquel, Vitamin B1 Pertinent Labs Reviewed. Nutritional Hx/Data Height 1.85 m Height (Calculated Centimeters) 185.4 Current Weight (lbs) 83.461 kg Weight (Calculated Kilograms) 83.5 Weight (Calculated Grams) 68215.0 [place] Body Weight 184 Weight Status Approriate GI Symptoms Food Allergies No Skin Integrity/Comment: Cory 16. Skin intact. Estimated Nutritional Goals BEE in Kcals: Using Current wt Calories/Kcals/Kg CBW 184lb/83.6kg Kcals Calculated 2090-2508kcal (25-30kcal/kg) Protein: Using Current wt Protein Calculated 84g (1g/kg) Fluid: ml 2090-2508ml (1ml/kcal) Nutritional Problem 1. Problem Problem Iandequate oral food beverage intake related to Etiology likely cognition aeb Signs/Symptoms: meal intake ranges 0-100%, avg is not meeting nutritinoal needs Intervention/Recommendation Comments 1. Continue with current diet order. Pt's meal intake is sporadic, ranging 0% on days and 100% on other days. Avg PO intake is inadequate. Nursing staff to encourage meals and provide total assistance. 2. Monitor tolerance to meals. Per MARY ANN Jones report, pt's head is tilted to one side and may be at risk of difficulty swallowing. Expected Outcomes/Goals Expected Outcomes/Goals 1. PO intake to meet at least 75% of estimated nutritinoal needs.
--- NOTE | 2017-04-19 17:13 | Progress Notes ---
DATE: SUBJECTIVE: The patient was seen, chart reviewed, discussed with staff. The patient is currently in a [place] chair, here because of aggressive behaviors, agitation, placed on hold by police, hostile, aggressive. Dr. Carter has been seeing the patient for the past few days, noting continued behavioral disturbances, still considered gravely disabled, concerns for psychotic behaviors, but at this time, the patient is pretty calm. Medications were reviewed. Labs were reviewed. The patient has been compliant. No medication side effects noted. ASSESSMENT: The patient remains symptomatic, not really answering questions coherently, but calm. PLAN: Continue to monitor, social work is working on placement. JOB# [id number]
[2017-04-20] MEDS: Magnesium Chloride EC 64mg Tab PO SCH (09:39)
[2017-04-20] MEDS: Multivitamin Tab PO SCH (09:39)
[2017-04-20] MEDS: Atorvastatin Calcium 10 MG TAB PO SCH (09:39)
--- NOTE | 2017-04-20 10:17 | Progress Notes ---
DATE: SUBJECTIVE: The patient seen, chart reviewed, discussed with staff. The patient is in the hospital, aggressive behaviors, agitation, and placed on a hold. The patient wanted to drive, but was disallowed from driving apparently, noted to be hostile, still forgetful, withdrawn, depressed, restless, highly confused, slept about 5 hours last night. The patient is with ongoing symptoms, still with impulsive and erratic behaviors, wanting to be left alone and easily upset, poor stress tolerance. ASSESSMENT: The patient with ongoing symptoms still angry, irritable. Medications were noted. No side effects. Given ongoing symptoms, he is not safe for discharge. [facility]# [id number]
--- NOTE | 2017-04-20 11:40 | Internal Medicine Prog Note ---
Internal Medicine Subjective - Subjective Patient seen and examined:: with staff, chart reviewed Patient is:: awake, in bed Per staff patient has:: no adverse event, no episodes of fall, poor appetite, noncompliant, tolerating meds Internal Medicine Objective - Results Result Diagrams: 04/02/17 15:05 04/02/17 15:05 Recent Labs: Laboratory Last Values WBC 10.7 Th/cmm (4.8-10.8) 04/02/17 15:05 RBC 4.28 Mil/cmm (4.30-5.70) L 04/02/17 15:05 Hgb 14.1 gm/dL (12-16) 04/02/17 15:05 Hct 40.3 % (41.0-60) L 04/02/17 15:05 MCV 94.0 fl (80-99) 04/02/17 15:05 MCH 33.0 pg (26.0-30.0) H 04/02/17 15:05 MCHC Differential 35.1 pg (28.0-36.0) 04/02/17 15:05 RDW 13.1 % (11.5-20.0) 04/02/17 15:05 Plt Count 144 Th/cmm (150-400) L 04/02/17 15:05 MPV 7.6 fl 04/02/17 15:05 Neutrophils % 57.2 % (40.0-80.0) 04/02/17 15:05 Lymphocytes % 33.2 % (20.0-50.0) 04/02/17 15:05 Monocytes % 6.3 % (2.0-10.0) 04/02/17 15:05 Eosinophils % 2.2 % (0.0-5.0) 04/02/17 15:05 Basophils % 1.1 % (0.0-2.0) 04/02/17 15:05 Sodium 135 mEq/L (136-145) L 04/02/17 15:05 Potassium 3.7 mEq/L (3.5-5.1) 04/02/17 15:05 Chloride 102 mEq/L (98-107) 04/02/17 15:05 Carbon Dioxide 28.3 mEq/L (21.0-31.0) 04/02/17 15:05 Anion Gap 8.4 (7.0-16.0) 04/02/17 15:05 BUN 13 mg/dL (7-25) 04/02/17 15:05 Creatinine 0.9 mg/dL (0.7-1.3) 04/02/17 15:05 Est GFR ( Amer) > 60.0 ml/min (>90) 04/02/17 15:05 Est GFR (Non-Af Amer) > 60.0 ml/min 04/02/17 15:05 BUN/Creatinine Ratio 14.4 04/02/17 15:05 Glucose 84 mg/dL (70-105) 04/02/17 15:05 POC Glucose 168 MG/DL (70 - 105) H 04/17/17 19:54 Calcium 9.3 mg/dL (8.6-10.3) 04/02/17 15:05 Total Bilirubin 0.4 mg/dL (0.3-1.0) 04/02/17 15:05 AST 49 U/L (13-39) H 04/02/17 15:05 ALT 70 U/L (7-52) H 04/02/17 15:05 Alkaline Phosphatase 63 U/L (34-104) 04/02/17 15:05 Total Protein 7.0 gm/dL (6.0-8.3) 04/02/17 15:05 Albumin 4.5 gm/dL (4.2-5.5) 04/02/17 15:05 Globulin 2.5 gm/dL 04/02/17 15:05 Albumin/Globulin Ratio 1.8 (1.0-1.8) 04/02/17 15:05 - Physical Exam Vitals and I&O: Vital Signs Temp 98.4 F 04/20/17 05:45 Pulse 71 04/20/17 05:45 Resp 18 04/20/17 05:45 BP 116/74 04/20/17 05:45 Pulse Ox 95 04/20/17 05:45 Intake & Output 04/19/17 04/20/17 04/20/17 18:59 06:59 18:59 Intake Total 1600 Balance 1600 Intake: Oral 1600 Other: # Voids 3 # Bowel Movements 0 Stool Characteristics Soft Active Medications: Current Medications Acetaminophen (Tylenol) 650 mg PO Q4H PRN PRN Reason: Mild Pain/Headache/T above 101 Stop: 06/01/17 17:21 Last Admin: 04/13/17 10:07 Dose: 650 mg Al Hydrox/Mg Hydrox/Simethicone (Maalox) 30 ml PO Q6H PRN PRN Reason: Dyspepsia Stop: 06/01/17 17:21 Atorvastatin Calcium (Lipitor) 10 mg PO DAILY MIKE PRN Reason: Protocol Stop: 06/03/17 08:59 Last Admin: 04/20/17 09:39 Dose: 10 mg Lorazepam (Ativan) 0.5 mg PO Q4HR PRN; Protocol PRN Reason: Agitation Stop: 06/01/17 17:21 Last Admin: 04/19/17 16:40 Dose: 0.5 mg Lorazepam (Ativan) 0.5 mg PO TID IMKE PRN Reason: Protocol Stop: 06/06/17 13:59 Last Admin: 04/20/17 09:40 Dose: 0.5 mg Magnesium Chloride (Slow-Mag) 1 ect PO DAILY MIKE Stop: 06/07/17 08:59 Last Admin: 04/20/17 09:39 Dose: 1 ect Magnesium Hydroxide (Milk Of Magnesia) 30 ml PO DAILY PRN PRN Reason: Constipation Stop: 06/01/17 17:21 Last Admin: 04/13/17 08:38 Dose: 30 ml Multivitamins/Vitamin C (Theragran) 1 tab PO DAILY MIKE Stop: 06/03/17 08:59 Last Admin: 04/20/17 09:39 Dose: 1 tab Quetiapine Fumarate (Seroquel) 50 mg PO BID MIKE PRN Reason: Protocol Stop: 06/04/17 08:59 Last Admin: 04/20/17 09:39 Dose: 50 mg Thiamine HCl (Vitamin B1) 100 mg PO DAILY MIKE Stop: 06/03/17 08:59 Last Admin: 04/20/17 09:39 Dose: 100 mg Trazodone HCl (Desyrel) 50 mg PO HS MIKE PRN Reason: Protocol Stop: 06/17/17 20:59 General: lethargic, demented HEENT: NC/AT, PERRLA, thinning hair, poor dentition Neck: Supple, No thyromegaly Lungs: CTAB Cardiovascular: RRR, Normal S1, Normal S2, without murmur Abdomen: soft, non-tender, globular, positive bowel sound Extremities: excoriation Internal Medicine Assmt/Plan - Assessment Assessment: AGITATION PSYCHOSIS ALTERED MENTAL STATUS DEMENTIA DYSLIPIDEMIA - Plan Plan: cont w nutritional support will rview labs symptomatic care and tx dw rn Nutritional Asmnt/Malnutr-PDOC - Dietary Evaluation Malnutrition Findings (Please click <Entered> for more info): Nutritional Asmnt/Malnutrition Start: 04/10/17 18: 21 Text: Status: Complete Freq: Document 04/10/17 18:21 GSUN (Rec: 04/10/17 18:43 GSUN [id number]) Nutritional Asmnt/Malnutrition Patient General Information Nutritional Screening Diagnosis Diagnosis Unspecified psychosis Pertinent Medical Hx/Surgical Hx Dyslipidemia, dementia, appendectomy Subjective Information 66 year old male. Pt is a poor historian. Avg PO intake is sporadic, 0% all three meals today, 100% all three meals on 04/08. Visited pt during meal time, observed INTE[employer]ATION PROJECT MANAGER providing total assist, pt's head tilted to one side. INTEGRATION PROJECT MANAGER stated pt will state if he wants to eat or not, pt might have difficulty swallowing due to head tilted with one side, however no coughing noted. CBW 184lb via bedscale, no severe muscle/fat wasting noted. Current Diet Order/ Nutrition Support Regular, Boost TID Pertinent Medications Lipitor, Slow-Ying, MOM, Theragran, Seroquel, Vitamin B1 Pertinent Labs Reviewed. Nutritional Hx/Data Height 1.85 m Height (Calculated Centimeters) 185.4 Current Weight (lbs) 83.461 kg Weight (Calculated Kilograms) 83.5 Weight (Calculated Grams) 50504.0 [place] Body Weight 184 Weight Status Approriate GI Symptoms Food Allergies No Skin Integrity/Comment: Cory 16. Skin intact. Estimated Nutritional Goals BEE in Kcals: Using Current wt Calories/Kcals/Kg CBW 184lb/83.6kg Kcals Calculated 2090-2508kcal (25-30kcal/kg) Protein: Using Current wt Protein Calculated 84g (1g/kg) Fluid: ml 2090-2508ml (1ml/kcal) Nutritional Problem 1. Problem Problem Iandequate oral food beverage intake related to Etiology likely cognition aeb Signs/Symptoms: meal intake ranges 0-100%, avg is not meeting nutritinoal needs Intervention/Recommendation Comments 1. Continue with current diet order. Pt's meal intake is sporadic, ranging 0% on days and 100% on other days. Avg PO intake is inadequate. Nursing staff to encourage meals and provide total assistance. 2. Monitor tolerance to meals. Per MARY ANN Jones report, pt's head is tilted to one side and may be at risk of difficulty swallowing. Expected Outcomes/Goals Expected Outcomes/Goals 1. PO intake to meet at least 75% of estimated nutritinoal needs.
[2017-04-21] MEDS: Atorvastatin Calcium 10 MG TAB PO SCH (09:52)
[2017-04-21] MEDS: Magnesium Chloride EC 64mg Tab PO SCH (09:52)
[2017-04-21] MEDS: Multivitamin Tab PO SCH (09:52)
== END 2017-04-21 11:35 | DRG 885 ==
LOC: ER 14:21 → GERO 16:00
PROVIDERS: ADMIT Psychiatry & Neurology Psychiatry; ATTEND Psychiatry & Neurology Psychiatry
DX: F29 Unspecified psychosis not due to a substance or known physiological condition (principal); F03.91 Unspecified dementia, unspecified severity, with behavioral disturbance; E78.5 Hyperlipidemia, unspecified; Z66 Do not resuscitate; R41.82 Altered mental status, unspecified; Z82.49 Family history of ischemic heart disease and other diseases of the circulatory system; Z90.49 Acquired absence of other specified parts of digestive tract
CPT/HCPCS: 36415-UA; 80053-TC; 82948-90; 85025-TC; 90899; 93005; G0410; J1200; J1630; J2060; Z7610